=== PATIENT | female | born 1965 | race Caucasian/White ===

== ENCOUNTER → 2019-02-09 08:42 | Outpatient (CLI) | payer MEDICARE, SELFPAY ==
--- NOTE | 2019-02-09 08:48 | BI_ITS ---
MAMMOGRAPHY - BILATERAL SCREENING REASON FOR EXAM: Female, 53 years old. Routine annual screening examination. PERTINENT HISTORY: Sisters with breast cancer. Aunts with breast cancer. TECHNIQUE: Digital bilateral breast angelia (3D mammographic acquisition) in the CC and MLO projections. 2-D mediolateral oblique (MLO) and craniocaudad (CC) views of both breasts were obtained. CAD: Full Field Digital Mammography with Computer Added Detection was performed. COMPARISON: Comparison is made with prior study dated June 10, 2016 and February 05, 2015. FINDINGS: Breast Composition: The breasts are heterogeneously dense, which may obscure small masses. There are no dominant masses or suspicious calcifications. No other significant abnormalities are identified. There has been no significant change since the prior study. BI/SCREEN MAMM (CAD) W/ANGELIA BILAT IMPRESSION: Stable bilateral screening mammogram. Yearly follow-up mammogram recommended. (A) ASSESSMENT CATEGORY: BIRADS Category 1: Negative. A letter regarding these results will be sent to the patient by the facility within 30 days. Approximately 10% of breast cancers are not detected by mammography. A normal mammogram should not delay biopsy of a clinically suspicious abnormality. [id number] Electronically Signed: Lester Cervantes, at 11:17 EDT , Service support ,
--- NOTE | 2019-02-09 09:19 | BD_ITS ---
STUDY: DUAL ENERGY X-RAY ABSORPTIOMETRY / DXA REASON FOR EXAM: Female, 53 years old. Early menopause. No loss of height. TECHNIQUE: Bone Mineral Density (BMD) measurements of lumbar spine and right hip were obtained. COMPARISON: Comparison is made with prior study dated February 05, 2015. FINDINGS: Lumbar Spine (L1-L4): g/cm2 (1.079) / T-score (-0.8) / Z-score (-0.2) Findings are suggestive of normal bone density with a low fracture risk. Right Femur Total: g/cm2 (0.791) / T-score (-1.7) / Z-score (-1.1) Right Femoral Neck: g/cm2 (0.762) / T-score (-2.0) / Z-score (-1.1) The T-Scores on the most recent prior examination were: Lumbar Spine (L1-L4): There has been improvement of bone density since the previous examination. Left Femur Total: . Right Femur Total: which represents a worsening of 2.2%. BD/Dexa Bone Density Study IMPRESSION: The patient is considered osteopenic as outlined below according to World Diaz Organization (WHO) criteria with a moderate fracture risk. There has been worsening of bone density since the previous examination. Reference Information: The T-score is the number of standard deviations above or below the standard which is normal for young adults at their peak bone mineral density. The World Health Organization (WHO) interprets the T-scores as follows: Above -1 Normal bone density Between -1 and -2.5 Osteopenia Equal to / or below -2.5 Osteoporosis As a practical clinical guideline, osteopenia may be graded as follows: Mild -1 through -1.5 Moderate -1.6 through -2.0 Severe -2.1 through -2.4 The Z-score is the number of standard deviations above or below age-matched controls. A Z-score of less than -1.5 would be considered abnormal. References: 1. NIH Osteoporosis and Related Bone Diseases http://www.osteo.org 2. International Society for Clinical Densitometry http://www.iscd.org 3. National Osteoporosis Foundation http://www.nof.org Electronically Signed: Lester Cervantes, at 11:10 EDT , Service support ,
== END ==
PROVIDERS: Family Provider Nurse Practitioner Family; PCP Nurse Practitioner Family; Referring Provider Nurse Practitioner Family; Visit Provider Nurse Practitioner Family
DX: Z12.31 Encounter for screening mammogram for malignant neoplasm of breast (principal); Z80.3 Family history of malignant neoplasm of breast; Z78.0 Asymptomatic menopausal state; M85.80 Other specified disorders of bone density and structure, unspecified site
CPT/HCPCS: 77063; 77067; 77080

== ENCOUNTER → 2021-03-27 08:45 | Outpatient (CLI) | payer MEDICARE, SELFPAY ==
--- NOTE | 2021-03-27 08:51 | VDLE_ITS ---
Reason For Study: pain RIGHT LEFT CFV is partially compressible with decreased CFV is compressible, spontaneous, phasic, flow. DVT appears to be loosley attached. competent, and demonstrates normal FV, POP V, T/P Trunk, PTV, Peroneal V, and augmentation. Gastroc V are dilated and noncompressible. GSV is normal. Procedure This is a venous duplex using B-mode, color flow and spectral Doppler. Exam performed in department. The exam was diagnostic. A preliminary report was called and/or faxed to Dr. Santo office. VL/Venous Duplex US, Unilateral Interpretation Summary Acute deep vein thrombosis is noted in the right common femoral vein. Acute lucie p vein thrombosis is noted in the right femoral vein. Acute deep vein thrombosis is noted in the rig ht popliteal vein. Acute deep vein thrombosis is noted in the right tibio-peroneal trunk. Acute de ep vein thrombosis is noted in the right posterior tibial vein. Acute deep vein thrombosis is noted i n the right peroneal vein. Acute deep vein thrombosis is noted in the right gastrocnemius vein. The right great saphenous vein appears patent and compressible segmentally. Ordering Physician: Jose L Coffman Performed By: Rick Magana RVT
== END ==
PROVIDERS: Referring Provider Specialist; Visit Provider Specialist
DX: M79.661 Pain in right lower leg (principal); I82.411 Acute embolism and thrombosis of right femoral vein; I82.431 Acute embolism and thrombosis of right popliteal vein; I82.441 Acute embolism and thrombosis of right tibial vein; I82.451 Acute embolism and thrombosis of right peroneal vein; I82.461 Acute embolism and thrombosis of right calf muscular vein
CPT/HCPCS: 93971

== ENCOUNTER 2021-03-27 09:38 | Emergency (ER) | payer MEDICARE, SELFPAY ==
[2021-03-27 09:39] VITALS: BP 98/57; PULSE 81; RESP 16; TEMP 36.1; O2SAT 98; BMI 29.2
--- NOTE | 2021-03-27 09:58 | EDS_ITS ---
HPI History of Present Illness Chief Complaint: Lower Extremity Injury Informant: patient Narrative Narrative: Patient sent over from radiology department for diagnosed blood clot right lower extremity. Reports had a foot fracture nonsurgically managed 9 weeks [address] Coffman. Intermittent leg swelling since then however worsening over last 2 weeks. Ultrasound ordered last night by Dr. Coffman performed this morning sent to the ED with results. Reviewing of report noted femoral vein popliteal vein TP trunk PTV, peroneal vein and gastroc veins all dilated noncompressible. Also partially compressible common femoral for vein. Reports concerning loosely attached DVT. 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 She states the filter was placed prior to a gastric sleeve procedure. She states she lost her insurance 4 years ago her blood thinners of Coumadin was stopped at that time. After couple years she has been off of it had insurance back they decided to leave her off the blood thinners. Denies any GI bleed history. Denies chest pains or shortness of breath. She states previous PCP she was seen was Dr. Jared Julio at [place]. She is currently back and forth from [facility]. She has been staying here since her foot fracture. Prior similar symptoms: Yes PFSH [facility] Medical History (Updated 03/27/21 @ 11:[address] Donovan Francois DO) Acute carpal tunnel syndrome Arthritis Closed left arm fracture Depression Former smoker GERD (gastroesophageal reflux disease) Irregular heart beat Leaky heart valve Osteoporosis Pulmonary embolism Sleep apnea Home Medications bupropion HCl 150 mg PO DAILY 06/23/16 [History Last Taken Unknown] ondansetron HCl 8 mg PO Q8H PRN PRN #20 tablet 07/01/16 [Rx Last Taken Unknown] oxycodone-acetaminophen 1 - 2 tab PO Q6H PRN PRN #60 tab 07/01/16 [Rx Last Taken Unknown] apixaban [Eliquis DVT-PE Treat 30D Start] 10 mg PO BID #74 tab 03/27/21 [Rx Last Taken Unknown] Allergy/AdvReac Type Severity Reaction Status Date / Time venlafaxine HCl Allergy Hives Verified 01/17/16 17:22 [From Effexor] Surgical History (Updated 03/27/21 @ 11:20 by Kareen Cazares) History of embolic filter insertion Social History Smoking Status: Never smoker ROS ROS ED Constitutional Constitutional ED: Denies chills, fever(s) or sweats Eyes Eyes: Denies change in vision ENT ENT ED: Denies dysphagia or sore throat Cardiovascular Cardiovascular: Denies chest pain, leg edema, palpitations or racing heartbeat Respiratory/Chest Respiratory/Chest: Denies cough, dyspnea or dyspnea on exertion Gastrointestinal Gastrointestinal: Denies abdominal pain, diarrhea, nausea or vomiting Genitourinary Genitourinary ED: Denies dysuria, hematuria or urinary frequency Musculoskeletal Musculoskeletal: Reports myalgias; Denies back pain, extremity pain or neck pain Integumentary Denies rash or wounds Neurologic Neurologic: Denies headache(s), paresthesias or weakness EXAM Physical Exam Const Vital Signs: 03/27/21 09:39 Temperature 97.0 F L Temperature Source Temporal Pulse Rate 81 Respiratory Rate 16 Blood Pressure 98/57 L Blood Pressure Mean 70 Pulse Ox 98 Oxygen Delivery Method Room Air Positive well nourished and well developed General Appearance ED: well developed and NAD HEENT Reports moist mucous membranes normocephalic and atraumatic Eyes PERRL, EOMs intact bilaterally and conjunctivae normal General Eye ED: Yes normal appearance of both eyes Neck no lymphadenopathy and supple General: Negative for tenderness Chest Wall Chest: Negative for tenderness Resp normal respiratory effort and normal air movement Effort and Inspection: symmetric chest movement; Negative for respiratory distress Cardio regular rate, regular rhythm and no murmurs Peripheral Pulses: pulses 2+ throughout GI normal to inspection, nondistended, normoactive bowel sounds and non-tender Palpation: Negative for guarding or rebound tenderness present Back/Spine no CVA tenderness and no thoracic nor lumbar tenderness Extremity normal to inspection Extremity Narrative: Asymmetric swelling right lower extremity compared to the left lower extremity. Mild calf tenderness. No medial thigh tenderness. Pulses were intact distally. General Extremety ED: Yes edema; Negative for tenderness General Extremity: edema Neuro oriented x3 and no sensory deficits noted Sensorium / Orientation: awake and alert Skin no rashes or lesions noted and no wounds MDM MDM MDM Narrative Medical decision making narrative: Patient confirmed right lower extremity DVT. She has been off anticoagulation for 4 years. Check labs normal creatinine and creatinine clearance. I did speak with Jared Anna, agrees with Rachna and he'll follow-up as an outpatient. 10 mg started in the ED. Discussed with patient 10 mg twice a day for 7 days then go down to 5 mg. She understands the plan of care. She has no chest symptoms. Her vitals remained stable. Lab Data Attestation: I reviewed the patient's lab results. Labs: Laboratory Results - last 24 hr 03/27/21 03/27/21 10:40 10:40 WBC 4.9 RBC 4.65 Hgb 13.8 Hct 43.3 MCV 93.1 MCH 29.7 MCHC 31.9 L RDW Std Deviation 42.4 RDW Coeff of Natalie 12.4 Plt Count 224 MPV 10.7 Immature Gran % (Auto) 0.200 Neut % (Auto) 53.5 Lymph % (Auto) 34.4 Nelson % (Auto) 8.6 Eos % (Auto) 2.7 Baso % (Auto) 0.6 Absolute Neuts (auto) 2.6 Absolute Lymphs (auto) 1.68 Nucleated RBC % 0 Sodium 140 Potassium 4.3 Chloride 107 Carbon Dioxide 33.0 H Anion Gap 0 L BUN 9 Creatinine 0.68 Estim Creat Clear Calc 73.93 Est GFR (MDRD) Af Amer 115 Est GFR (MDRD) Non-Af 95 BUN/Creatinine Ratio 13.2 Glucose 91 Calcium 8.9 Discharge Plan Triage Chief Complaint: Lower Extremity Injury ED Provider: Donovan Francois Dx/Rx/DC Orders Clinical Impression: Right leg DVT Instructions: DVT Dc Prescriptions: [place]e DVT-PE Treat 30D Start 5 mg (74 tabs) tablets,dose pack 10 mg PO BID Qty: 74 RF: 0 No Action bupropion HCl 150 MG tablet extended release 24 hr 150 mg PO DAILY RF: 0 ondansetron HCl 8 MG tablet 8 mg PO Q8H PRN PRN (Reason: Nausea) Qty: 20 RF: 0 oxycodone-acetaminophen 1 TABLET tablet 1 - 2 tab PO Q6H PRN PRN (Reason: Pain) Qty: 60 RF: 0 Primary Care Provider: NOT,DEFINED Referrals: NOT,DEFINED [Primary Care Provider] - Jared Pereyra RN HOUSE SUPERVISOR, RN HOUSE SUPERVISOR-C [NON-STAFF] - 5-7 Days Disposition Disposition: Home, Self Care
[2021-03-27 10:47] LABS: Absolute Lymphocyte Count 1.68 X10^3/uL (0.83-4.51); Absolute Neutrophil Count 2.6 X10^3/uL (2.0-7.7); Basophil# 0.03 X10^3/uL; Basophil% 0.6 % (0-1); Eosinophil# 0.13 X10^3/uL; Eosinophils% 2.7 % (0-5); Hematocrit 43.3 % (37-47); Hemoglobin 13.8 g/dL (12.0-15.0); Lymphocyte # 1.68 X10^3/ul (0.83-4.51); Lymphocyte % 34.4 % (19-41); Mean Corp Hgb Conc 31.9 g/dL (32-36); Mean Corpuscular Hgb 29.7 pg (27.0-32.0); Mean Corpuscular Volume 93.1 fL (81-99); Mean Platelet Vol. 10.7 fl (6.2-12.0); Monocyte# 0.42 X10^3/uL; Monocyte% 8.6 % (0-10); NRBC Flagged by Analyzer 0 % (0-5); Neutrophil # 2.61 X10^3/uL (2.7-7.7); Neutrophil % 53.5 % (47-70); Platelet Count 224 K/mm3 (150-450); RBC Distribution Width CV 12.4 % (11.6-14.6); RBC Distribution Width SD 42.4 fl (35.1-43.9); Red Blood Count 4.65 M/mm3 (4.2-5.4); White Blood Count 4.9 K/mm3 (4.4-11.0)
[2021-03-27 11:00] LABS: Anion Gap 0 (5-15); BUN 9 mg/dL (7-18); BUN/Creat Ratio 13.2 RATIO (10-20); Calcium,Total 8.9 mg/dL (8.5-10.1); Chloride 107 mmol/L (98-107); Creatinine, Serum 0.68 mg/dL (0.55-1.02); EST Glomerular Filtration Rate 95 mL/min (>60); Est Glom Filt Rate - Afr Amer 115 mL/min (>60); Estimated Creatinine Clearance 73.93 ml/min; Glucose 91 mg/dL (74-106); Potassium 4.3 mmol/L (3.5-5.1); Sodium Level 140 mmol/L (136-145)
[2021-03-27] MEDS: APIXABAN 5 MG TABLET 10 MG PO (11:40)
[2021-03-27 11:53] VITALS: BP 104/71; PULSE 88
== END 2021-03-27 11:56 | disposition home or self-care (01) ==
LOC: ED 11:56
PROVIDERS: Emergency Provider Emergency Medicine
DX: I82.411 Acute embolism and thrombosis of right femoral vein (principal); I82.431 Acute embolism and thrombosis of right popliteal vein; I82.441 Acute embolism and thrombosis of right tibial vein; I82.451 Acute embolism and thrombosis of right peroneal vein; I82.461 Acute embolism and thrombosis of right calf muscular vein; M19.90 Unspecified osteoarthritis, unspecified site; G47.30 Sleep apnea, unspecified; K21.9 Gastro-esophageal reflux disease without esophagitis; F32.9 Major depressive disorder, single episode, unspecified; Z79.01 Long term (current) use of anticoagulants; Z79.899 Other long term (current) drug therapy; Z86.718 Personal history of other venous thrombosis and embolism; Z86.711 Personal history of pulmonary embolism; Z87.891 Personal history of nicotine dependence
CPT/HCPCS: 36415; 80048; 85025; 93971; 99283

== ENCOUNTER 2021-09-09 12:27 | Outpatient (CLI) | payer MEDICARE, SELFPAY ==
--- NOTE | 2021-09-09 12:32 | RAD_ITS ---
EXAM: XR THORACIC SPINE, 3 VIEWS CLINICAL INDICATION: OSTEO KYPHOPLASTY TECHNIQUE: Frontal, lateral and swimmer''s views of the thoracic spine. This report was created using [employer] report generation technology. COMPARISON: None. FINDINGS: VERTEBRAE: There is endplate spondylosis of the vertebral body. Loss of intervertebral disc height. Age indeterminate compression deformity of L2, L1, T11, T10, T8, T6, T4. Kyphoplasty changes at L3. Preservation of the normal thoracic kyphosis. No significant facet arthropathy. DISC SPACES: Unremarkable. Disc spaces are maintained. VASCULATURE: An IVC filter is in place. RAD/Thoracic Spine 3 Views IMPRESSION: There are compression deformities of the spine. These are age-indeterminate. MRI could further evaluate if of concern. Electronically Signed: Earl Blackman MD at 15:24 EST Reading Location ID and State: [facility] / [place] , Service support ,
== END 2021-09-09 23:59 | disposition home or self-care (01) ==
LOC: RAD 12:29
PROVIDERS: PCP Nurse Practitioner Family; Referring Provider Anesthesiology Pain Medicine; Visit Provider Anesthesiology Pain Medicine
DX: M80.08XA Age-related osteoporosis with current pathological fracture, vertebra(e), initial encounter for fracture (principal)
CPT/HCPCS: 72072

== ENCOUNTER 2021-09-16 09:01 | Outpatient (CLI) | payer MEDICARE, SELFPAY ==
[2021-09-16 09:59] LABS: Hematocrit 43.3 % (37-47); Mean Corp Hgb Conc 32.3 g/dL (32-36); Mean Corpuscular Hgb 30.2 pg (27.0-32.0); Mean Corpuscular Volume 93.3 fL (81-99); Mean Platelet Vol. 10.8 fl (6.2-12.0); Platelet Count 210 K/mm3 (150-450); RBC Distribution Width CV 13.7 % (11.6-14.6); RBC Distribution Width SD 47.3 fl (35.1-43.9); Red Blood Count 4.64 M/mm3 (4.2-5.4); White Blood Count 5.8 K/mm3 (4.4-11.0)
[2021-09-16 10:30] LABS: PTHIN 75.8 pg/mL (18.4-80.1)
[2021-09-16 10:33] LABS: Vitamin D,25 Hydroxy 107.6 ng/mL
[2021-09-16 10:41] LABS: ALB/GLOB Ratio 1.1 RATIO (0.9-2.4); AST(SGOT) 13 U/L (15-37); Alanine Aminotransfer ALT/SGPT 17 U/L (13-56); Albumin, Serum 3.5 g/dL (3.2-5.0); Alkaline Phosphatase 40 U/L (45-117); Anion Gap 5 (5-15); BUN 14 mg/dL (7-18); BUN/Creat Ratio 19.7 RATIO (10-20); Calcium,Total 8.9 mg/dL (8.5-10.1); Chloride 108 mmol/L (98-107); Cholesterol 136 mg/dL (200); Creatinine, Serum 0.71 mg/dL (0.55-1.02); EST Glomerular Filtration Rate 91 mL/min (>60); Est Glom Filt Rate - Afr Amer 110 mL/min (>60); Free T3 2.7 pg/mL (2.18-3.98); Globulin 3.1 g/dL (2.2-4.2); Glucose 82 mg/dL (74-106); High Density Lipoprotein 60 mg/dL; Potassium 4.2 mmol/L (3.5-5.1); Protein, Total 6.6 g/dL (6.4-8.2); Sodium Level 143 mmol/L (136-145); T4 Free Direct 1.02 ng/dL (0.76-1.46); Thyroid Stim Hormone (TSH) 1.81 uIU/mL (0.358-3.74); Triglycerides 87 mg/dL; Very Low Density Lipoprotein 17 mg/dL (5-40)
== END 2021-09-16 23:59 | disposition home or self-care (01) ==
LOC: LAB 09:05
PROVIDERS: PCP Nurse Practitioner Family; Visit Provider Nurse Practitioner Family
DX: I82.419 Acute embolism and thrombosis of unspecified femoral vein (principal); E78.5 Hyperlipidemia, unspecified; E55.9 Vitamin D deficiency, unspecified; E03.9 Hypothyroidism, unspecified
CPT/HCPCS: 36415; 80053; 80061; 82306; 83970; 84439; 84443; 84481; 85027

== ENCOUNTER 2021-09-22 09:32 | Outpatient (CLI) | payer MEDICARE, SELFPAY ==
--- NOTE | 2021-09-22 09:41 | VDLE_ITS ---
Reason For Study: RLE DVT 03/27/2021 RIGHT LEFT GSV is normal. CFV is compressible, spontaneous, phasic, CFV is compressible, spontaneous, phasic, competent, and demonstrates normal competent and demonstrates normal augmentation. augmentation. POP V is compressible, spontaneous, phasic, competent and demonstrates normal augmentation. T/P Trunk is compressible. PTV is compressible. RT PerV is compressible. PFV is compressible. Proximal and mid FV is compressible, spontaneous, phasic, competent and demonstrates normal augmentation. Distal CFV is partially compressible; however flow is noted throughout FV. VL/Venous Duplex US, Unilateral Interpretation Summary Chronic venous changes are noted in the right distal femoral vein, which is par tially compressible, but demonstrates venous flow. The remainder of the right lower extremity deep v enous system is patent and compressible. Valvular competence appears intact within the proximal deep venous system on the right . The right great saphenous vein appears patent and compressible s egmentally. Ordering Physician: Jared Pereyra Referring Physician: Jared Pereyra Performed By: Kathrine Angel, FIDEL, RVT
--- NOTE | 2021-09-22 10:33 | BI_ITS ---
MAMMOGRAPHY - BILATERAL SCREENING REASON FOR EXAM: Female, 55 years old. Routine annual screening examination. PERTINENT HISTORY: Sisters with breast cancer. Aunt with breast cancer. TECHNIQUE: Digital bilateral breast angelia (3D mammographic acquisition) in the CC and MLO projections. 2-D mediolateral oblique (MLO) and craniocaudad (CC) views of both breasts were obtained. CAD: Full Field Digital Mammography with Computer Added Detection was performed. COMPARISON: Comparison is made with prior study dated 02/09/2019. FINDINGS: Breast Composition: The breasts are heterogeneously dense, which may obscure small masses. There are no dominant masses or suspicious calcifications. No other significant abnormalities are identified. There has been no significant change since the prior study. BI/SCRN MAMM (CAD)W/ANGELIA BILAT IMPRESSION: Stable bilateral screening mammogram. Yearly follow-up mammogram recommended. (A) ASSESSMENT CATEGORY: BIRADS Category 1: Negative. A letter regarding these results will be sent to the patient by the facility within 30 days. Approximately 10% of breast cancers are not detected by mammography. A normal mammogram should not delay biopsy of a clinically suspicious abnormality. [id number] Electronically Signed: Lester Cervantes MD at 12:32 EST ,
== END 2021-09-22 23:59 | disposition home or self-care (01) ==
PROVIDERS: PCP Nurse Practitioner Family; Referring Provider Nurse Practitioner Family; Visit Provider Nurse Practitioner Family
DX: Z12.31 Encounter for screening mammogram for malignant neoplasm of breast (principal); I82.413 Acute embolism and thrombosis of femoral vein, bilateral; Z80.3 Family history of malignant neoplasm of breast
CPT/HCPCS: 77063; 77067; 93971

== ENCOUNTER 2021-10-15 12:22 | Outpatient (CLI) | payer MEDICARE, SELFPAY ==
--- NOTE | 2021-10-15 12:33 | RAD_ITS ---
INDICATION: BACK PAIN EXAMINATION/TECHNIQUE: X-RAY - XR Spine Thoracic 3 Views COMPARISON: Thoracic spine radiograph from 09/09/2021 FINDINGS: Stable chronic appearing mild compression deformities in the thoracic spine. No change in alignment. Redemonstration of multilevel degenerative changes. No new or acute findings since prior study of 09/09/2021. RAD/Thoracic Spine 3 Views IMPRESSION: Stable exam with no new or acute findings since prior study 09/09/2021. Electronically Signed: Tyrone Salcedo, at 14:21 EDT ,
--- NOTE | 2021-10-15 12:34 | RAD_ITS ---
INDICATION: BACK PAIN EXAMINATION/TECHNIQUE: X-RAY - XR Spine Lumbar 2 or 3 Views COMPARISON: Lumbar spine radiograph from 09/04/2012. Thoracic spine radiograph from 09/09/2021. FINDINGS/ RAD/Lumbar Spine 2 or 3 Views IMPRESSION: Kyphoplasty changes in the L3 and L4 vertebral bodies. Chronic minimal height loss and degenerative endplate changes of the L1-L5 vertebral bodies. Multilevel degenerative disc disease. Multilevel facet arthropathy most prominent in the L4-S1 levels. Sacroiliac joints are unremarkable. No acute fracture or dislocation. 9 mm of grade 1 anterolisthesis of L4 on L5. Alignment is preserved. Stable positioning of the IVC filter. Electronically Signed: Tyrone Salcedo, at 14:16 EDT ,
== END 2021-10-15 23:59 | disposition home or self-care (01) ==
LOC: RAD 12:31
PROVIDERS: PCP Nurse Practitioner Family; Referring Provider Anesthesiology Pain Medicine; Visit Provider Anesthesiology Pain Medicine
DX: M54.9 Dorsalgia, unspecified (principal)
CPT/HCPCS: 72072; 72100

== ENCOUNTER → 2021-11-24 | Outpatient (CLI) | payer MEDICARE, SELFPAY ==
[2021-11-24 10:15] LABS: Amphetamine Urine VISTA NEGATIVE (<1000 ng/mL); Barbiturate Urine VISTA NEGATIVE (< 200 ng/mL); Benzodiazepine Urine VISTA NEGATIVE (< 200 ng/mL); Cocaine Urine VISTA NEGATIVE (< 300 ng/mL); Ecstacy Urine VISTA POSITIVE (< 500 ng/mL); Methadone Urine VISTA NEGATIVE (< 300 ng/mL); PCP Urine VISTA NEGATIVE (< 25 ng/mL); THC Urine VISTA NEGATIVE (< 50 ng/mL); Vista UDS pH Range 5
== END | disposition home or self-care (01) ==
LOC: LAB 09:28
PROVIDERS: PCP Nurse Practitioner Family; Referring Provider Anesthesiology Pain Medicine; Visit Provider Anesthesiology Pain Medicine
DX: F11.20 Opioid dependence, uncomplicated (principal)
CPT/HCPCS: 80307

== ENCOUNTER → 2021-11-27 | Outpatient (CLI) | payer MEDICARE, SELFPAY ==
--- NOTE | 2021-11-27 14:50 | CT_ITS ---
STUDY: CT THORACIC SPINE WITHOUT CONTRAST REASON FOR EXAM: Female, 56 years old. RADICULOPATHY RADIATION DOSAGE (If Supplied By Facility): CTDIvol = ( 18.88 ) mGy, DLP = ( 628.56 ) mGycm TECHNIQUE: The patient was scanned in a multi detector CT scanner. High resolution imaging was performed. Images were obtained from to . Sagittal and coronal images were reconstructed. Individualized dose optimization techniques were used for this CT. COMPARISON: None. FINDINGS: Normal visualized cervical spine. Normal kyphosis of the thoracic spine. There is no substantial scoliosis there is mild irregularity of endplates and decrease in height of multiple vertebral bodies with vacuum phenomena seen.. Normal disc spaces heights. The soft tissue structures are unremarkable. CT/Spine Thoracic without Contras IMPRESSION: Mild chronic appearing compression deformity of mid thoracic vertebral bodies. Electronically Signed: Marco A Marx MD at 4:19 EDT ,
== END | disposition home or self-care (01) ==
PROVIDERS: PCP Nurse Practitioner Family; Referring Provider Anesthesiology Pain Medicine; Visit Provider Anesthesiology Pain Medicine
DX: M54.14 Radiculopathy, thoracic region (principal)
CPT/HCPCS: 72128

== ENCOUNTER → 2021-12-04 | Outpatient (CLI) | payer MEDICARE, SELFPAY ==
[2021-12-04 12:37] LABS: Vitamin D,25 Hydroxy 114.7 ng/mL
[2021-12-04 12:43] LABS: Calcium,Total 9.3 mg/dL (8.5-10.1)
== END | disposition home or self-care (01) ==
LOC: BIMLAB 10:19
PROVIDERS: PCP Nurse Practitioner Family; Referring Provider Internal Medicine Endocrinology, Diabetes & Metabolism; Visit Provider Internal Medicine Endocrinology, Diabetes & Metabolism
DX: M81.0 Age-related osteoporosis without current pathological fracture (principal); E55.9 Vitamin D deficiency, unspecified
CPT/HCPCS: 36415; 82306; 82310

== ENCOUNTER → 2021-12-19 | Outpatient (CLI) | payer MEDICARE, SELFPAY ==
[2021-12-19 12:34] VITALS: BP 120/76; PULSE 62; RESP 16; TEMP 36.2; O2SAT 97
[2021-12-19] MEDS: Zoledronic Acid 5 MG 100 ML 300 MG IV (12:57)
[2021-12-19] MEDS: 0.9% NaCl Peripheral Flush Adult/Peds IV (12:57)
[2021-12-19 13:19] VITALS: BP 110/63; PULSE 75; RESP 16
== END | disposition home or self-care (01) ==
PROVIDERS: PCP Nurse Practitioner Family; Referring Provider Internal Medicine Endocrinology, Diabetes & Metabolism; Visit Provider Internal Medicine Endocrinology, Diabetes & Metabolism
DX: M81.0 Age-related osteoporosis without current pathological fracture (principal)
CPT/HCPCS: 96365; A4216; J3489

== ENCOUNTER 2022-05-22 09:42 | Emergency (ER) | payer MEDICARE, SELFPAY ==
[2022-05-22 09:43] VITALS: BP 128/89; PULSE 78; RESP 17; TEMP 36; O2SAT 98; BMI 30.9
--- NOTE | 2022-05-22 10:05 | CT_ITS ---
STUDY: CT ABDOMEN AND PELVIS WITH CONTRAST REASON FOR EXAM: Female, 56 years old. RLQ pain X 1 WEEK RADIATION DOSAGE (If Supplied By Facility): CTDIvol = ( 0.76 ) mGy, DLP = ( 464.52 ) mGycm TECHNIQUE: Transaxial images were obtained from the dome of the diaphragm to the symphysis pubis without oral contrast. IV 100mL [id number]-[id number] was administered. Sagittal and coronal images were reconstructed. Individualized dose optimization techniques were used for this CT. COMPARISON: 07/10/2013 and radiograph dated 10/15/2021 FINDINGS: There is minimal right basilar atelectasis and/or scarring.. The visualized portions of the heart are within normal limits. Normal liver. Normal gallbladder and extrahepatic biliary system. Normal spleen. Normal pancreas. Normal bilateral adrenal glands. There are too small to characterize low-attenuation foci within the right kidney which may reflect cysts. There is a left renal cyst. There are postsurgical changes of the stomach. Normal small intestine. There are scattered diverticula arising from the colon. The appendix is visualized and appears normal. Normal abdominal aorta. There is an IVC filter in place. Normal retroperitoneum. Normal urinary bladder. There is absence of the uterus consistent with a prior hysterectomy. Normal abdominal wall. There is evidence of prior kyphoplasty of L1 3 and L4. There are stable multilevel endplate deformities. There is a stable grade 1 anterior spondylolisthesis of L4 on L5. CT/Abdomen/Pelvis W IV Cont ONLY IMPRESSION: No acute intra-abdominal process. Electronically Signed: Lynne York MD at 11:59 EDT ,
--- NOTE | 2022-05-22 10:06 | EDS_ITS ---
HPI HPI - GI History of Present Illness Chief Complaint: Abd Pain Informant: patient Abdominal Pain/Flank Pain Onset: Weeks (1) Context: Gradual Onset Timing: Intermittent Quality: Aching Location: RLQ (Without radiation, no migration) Current Severity: Moderate Maximum Severity: Moderate Worsened by: Nothing Relieved by: Nothing Nausea/Vomiting/Emesis GI Symptom: Positive for Nausea; Negative for Vomiting Diarrhea/Melena/Hematochezia GI Symptom: Positive for - (Last BM yesterday, normal); Negative for Diarrhea, Melena or Hematochezia Associated Symptoms Associated Symptoms: Negative for Dysuria, Frequency, Hematuria or Urgency Narrative Narrative: Intermittent RLQ abdominal pain that has become more constant, saw PCP today and sent to the ER after a negative urinalysis in the office. No urinary symptoms. Anorexia, nausea, no vomiting. Prior abdominal surgeries include , hysterectomy with salpingo- oophorectomy, the other oophorectomy, and a gastric sleeve for weight loss. [facility] Medical History Acute carpal tunnel syndrome Arthritis Closed left arm fracture Depression Former smoker Gastric reflux GERD (gastroesophageal reflux disease) Hyperlipidemia Irregular heart beat Leaky heart valve Narcolepsy Osteoporosis Over weight Pulmonary embolism Sleep apnea Thyromegaly Urinary incontinence Home Medications acetaminophen 650 mg tablet,extended release (Tylenol Arthritis Pain) 650 mg PO Q12H 09/26/21 [History Last Taken Unknown] apixaban 2.5 mg tablet (Eliquis) 2.5 mg PO BID 09/26/21 [History Last Taken Unknown] bupropion HCl 300 mg 24 hr tablet, extended release 300 mg PO DAILY 09/26/21 [History Last Taken Unknown] diclofenac sodium 1 % topical gel 2 g topical 09/26/21 [History Last Taken Unknown] omeprazole 40 mg capsule,delayed release 40 mg PO DAILY 09/26/21 [History Last Taken Unknown] rosuvastatin 40 mg tablet 40 mg PO DAILY 09/26/21 [History Last Taken Unknown] zoledronic acid 5 mg/100 mL in mannitol 5 %-water intravenous piggybck 1 ea .Route ONCE #100 mL 12/04/21 [Rx Last Taken Unknown] buprenorphine 7.5 mcg/hour weekly transdermal patch 1 patch transdermal Q7D 05/22/22 [History Last Taken Unknown] Allergy/AdvReac Type Severity Reaction Status Date / Time armodafinil [From Nuvigil] Allergy anaphylaxis Verified 05/22/22 09:43 atorvastatin Allergy Hives Verified 05/22/22 09:43 venlafaxine HCl Allergy Hives Verified 05/22/22 09:43 [From Effexor] Family History Other Arthritis Cancer Heart disease Hypertension Surgical History H/O hysterectomy with oophorectomy H/O wrist surgery History of embolic filter insertion History of gastric bypass Hx of section Social History Smoking Status: Never smoker ROS ROS ED Constitutional Constitutional ED: Reports anorexia; Denies chills or fever(s) Eyes Eyes: Denies change in vision or diplopia ENT ENT ED: Denies rhinorrhea or sore throat Cardiovascular Cardiovascular: Denies chest pain or palpitations Respiratory/Chest Respiratory/Chest: Denies cough or dyspnea Gastrointestinal Gastrointestinal: Reports as per HPI, abdominal pain and nausea; Denies diarrhea or vomiting Genitourinary Genitourinary ED: Denies dysuria or hematuria Musculoskeletal Musculoskeletal: Reports arthralgias and back pain; Denies neck pain Integumentary Denies abscess or rash Neurologic Neurologic: Denies headache(s), paresthesias or weakness Psychiatric Psychiatric: Denies anxiety or suicidal thoughts EXAM Physical Exam Const Vital Signs: 05/22/22 09:43 05/22/22 11:51 Temperature 96.8 F L Temperature Source Temporal Pulse Rate 78 76 Respiratory Rate 17 16 Blood Pressure 128/89 H 111/73 Blood Pressure Mean 102 85 Pulse Ox 98 96 Oxygen Delivery Method Room Air Room Air Positive well nourished and well developed General Appearance ED: well developed and NAD HEENT Reports moist mucous membranes normocephalic and atraumatic Eyes PERRL and EOMs intact bilaterally Neck full ROM and supple Resp normal respiratory effort and clear to auscultation bilaterally Cardio regular rate, regular rhythm and no murmurs Rate: Negative for tachycardic GI non-distended GI Narrative: Moderate-severe tenderness in the right lower quadrant including McBurney's point. No guarding or rebound tenderness. Negative Rovsing. Positive psoas, positive obturator signs. Nontender throughout the rest of the abdomen. Auscultation: normoactive bowel sounds Palpation: soft Back/Spine no CVA tenderness General Back: other FROM Extremity normal to inspection General Extremety ED: Negative for edema, pulses abnormal or tenderness General Extremity: Negative for edema or pulses abnormal Neuro oriented x3, CN's II-XII intact bilaterally and no sensory deficits noted Sensorium / Orientation: awake and alert Motor Exam: strength 5/5 throughout Skin no rashes or lesions noted and no wounds MDM MDM MDM Narrative Medical decision making narrative: Concern is for an atypical case of appendicitis, or possibly 1 that is already ruptured and abscessed; the patient wears a Butrans patch because of chronic pain in her low back and joints, and it certainly is possible this has suppressed the pain adequately for her to tolerate this. Therefore labs, CT were obtained and while we were working her up, she was offered analgesics but declined until she had more information about the test results and whether she would be driving home or staying in the hospital which I thought was reasonable. Entire work-up is completely normal with a white blood count of 5.5 and no signs of a shift. The CT is normal; no signs of inflammation, no hematomas, no retroperitoneal hemorrhage, the IVC filter is in normal position and unremarkable. She does not have ovaries that could cause torsion or cyst rupture. No sign of a ureteral stone. As I discussed with the patient, perhaps this is muscular. I think she is stable to be discharged home and follow-up. Lab Data Attestation: I reviewed the patient's lab results. Labs: Laboratory Results - last 24 hr 05/22/22 05/22/22 10:00 10:00 WBC 5.5 RBC 4.85 Hgb 14.8 Hct 46.2 MCV 95.3 MCH 30.5 MCHC 32.0 RDW Std Deviation 43.0 RDW Coeff of Natalie 12.2 Plt Count 249 MPV 10.3 Immature Gran % (Auto) 0.400 Neut % (Auto) 54.4 Lymph % (Auto) 34.7 Terrell % (Auto) 9.1 Eos % (Auto) 0.7 Baso % (Auto) 0.7 Absolute Neuts (auto) 3.0 Absolute Lymphs (auto) 1.91 Nucleated RBC % 0 Sodium 141 Potassium 3.8 Chloride 107 Carbon Dioxide 29.0 Anion Gap 5 BUN 12 Creatinine 0.72 Estim Creat Clear Calc 89.25 Est GFR (MDRD) Af Amer 108 Est GFR (MDRD) Non-Af 90 BUN/Creatinine Ratio 16.8 Glucose 97 Calcium 9.0 Radiography Diagnostic Testing: Clinical Impression(s) from Imaging Studies Abdomen/Pelvis CT 05/22/22 10:05 IMPRESSION: No acute intra-abdominal process. Electronically Signed: Lynne York MD at 11:59 EDT , Discharge Plan Triage Chief Complaint: Abd Pain ED Provider: Jay Tuttle Dx/Rx/DC Orders Clinical Impression: Right lower quadrant abdominal pain Instructions: ED Abdominal Pain Unkn Cause Fem Prescriptions: No Action Eliquis 2.5 mg tablet 2.5 mg PO BID diclofenac sodium 1 % gel 2 g topical Label Comments: APPLY TO AFFECTED AREA ONCE DAILY rosuvastatin 40 mg tablet 40 mg PO DAILY Label Comments: TAKE 1 TABLET BY MOUTH ONCE DAILY FOR 90 DAYS bupropion HCl 300 mg tablet extended release 24 hr 300 mg PO DAILY Label Comments: TAKE 1 TABLET BY MOUTH ONCE DAILY FOR 30 DAYS omeprazole 40 mg capsule,delayed release(DR/EC) 40 mg PO DAILY Label Comments: TAKE 1 CAPSULE BY MOUTH ONCE DAILY FOR 30 DAYS acetaminophen [Tylenol Arthritis Pain] 650 mg tablet extended release 650 mg PO Q12H zoledronic [id number]-uvfah 5 mg/100 mL piggyback 1 ea .Route ONCE Qty: 100 0RF Rx Instructions: onceinfuse over 20 minutes buprenorphine 7.5 mcg/hour Patch Weekly 1 patch TRANSDERMAL Q7D Primary Care Provider: Jared Pereyra STAFF CLIMATE SCIENTIST Referrals: Jared Pereyra STAFF CLIMATE SCIENTIST, STAFF CLIMATE SCIENTIST-C [Primary Care Provider] - 3-5 Days if not improving Disposition Disposition: Home, Self Care
[2022-05-22] MEDS: Ondansetron 4 MG/2 ML Vial IV (10:12)
[2022-05-22 10:16] LABS: Absolute Lymphocyte Count 1.91 X10^3/uL (0.83-4.51); Basophil# 0.04 X10^3/uL; Basophil% 0.7 % (0-1); Eosinophil# 0.04 X10^3/uL; Eosinophils% 0.7 % (0-5); Hematocrit 46.2 % (37-47); Hemoglobin 14.8 g/dL (12.0-15.0); Lymphocyte # 1.91 X10^3/ul (0.83-4.51); Lymphocyte % 34.7 % (19-41); Mean Corpuscular Hgb 30.5 pg (27.0-32.0); Mean Corpuscular Volume 95.3 fL (81-99); Mean Platelet Vol. 10.3 fl (6.2-12.0); Monocyte% 9.1 % (0-10); NRBC Flagged by Analyzer 0 % (0-5); Neutrophil # 2.99 X10^3/uL (2.7-7.7); Neutrophil % 54.4 % (47-70); Platelet Count 249 K/mm3 (150-450); RBC Distribution Width CV 12.2 % (11.6-14.6); Red Blood Count 4.85 M/mm3 (4.2-5.4); White Blood Count 5.5 K/mm3 (4.4-11.0)
[2022-05-22 10:25] LABS: Anion Gap 5 (5-15); BUN 12 mg/dL (7-18); BUN/Creat Ratio 16.8 RATIO (10-20); Chloride 107 mmol/L (98-107); Creatinine, Serum 0.72 mg/dL (0.55-1.02); EST Glomerular Filtration Rate 90 mL/min (>60); Est Glom Filt Rate - Afr Amer 108 mL/min (>60); Estimated Creatinine Clearance 89.25 ml/min; Glucose 97 mg/dL (74-106); Potassium 3.8 mmol/L (3.5-5.1); Sodium Level 141 mmol/L (136-145)
[2022-05-22] MEDS: 0.9% Normal Saline 1,000 ML 250 ML IV (10:49)
[2022-05-22 11:51] VITALS: BP 111/73; PULSE 76; RESP 16; O2SAT 96
[2022-05-22 12:21] VITALS: RESP 18
== END 2022-05-22 12:22 | disposition home or self-care (01) ==
PROVIDERS: Emergency Provider Emergency Medicine; PCP Nurse Practitioner Family; Visit Provider Emergency Medicine
DX: R10.31 Right lower quadrant pain (principal); G89.29 Other chronic pain; R11.0 Nausea; E01.0 Iodine-deficiency related diffuse (endemic) goiter; E78.5 Hyperlipidemia, unspecified; G47.30 Sleep apnea, unspecified; M81.0 Age-related osteoporosis without current pathological fracture; G47.419 Narcolepsy without cataplexy; F32.A Depression, unspecified; Z87.891 Personal history of nicotine dependence
CPT/HCPCS: 74177; 80048; 85025; 96361; 96374; 99283; J7030; Q9967; A4216; J2405

== ENCOUNTER → 2022-05-26 | Outpatient (CLI) | payer MEDICARE, SELFPAY ==
[2022-05-26 09:14] LABS: Vitamin D,25 Hydroxy 47.6 ng/mL
[2022-05-26 09:19] LABS: ALB/GLOB Ratio 1.2 RATIO (0.9-2.4); AST(SGOT) 14 U/L (15-37); Alanine Aminotransfer ALT/SGPT 20 U/L (13-56); Albumin, Serum 3.4 g/dL (3.2-5.0); Alkaline Phosphatase 35 U/L (45-117); Anion Gap 2 (5-15); BUN 13 mg/dL (7-18); BUN/Creat Ratio 16.8 RATIO (10-20); Calcium,Total 8.9 mg/dL (8.5-10.1); Chloride 107 mmol/L (98-107); Cholesterol 155 mg/dL (200); Creatinine, Serum 0.77 mg/dL (0.55-1.02); EST Glomerular Filtration Rate 82 mL/min (>60); Est Glom Filt Rate - Afr Amer 99 mL/min (>60); Globulin 2.8 g/dL (2.2-4.2); Glucose 85 mg/dL (74-106); High Density Lipoprotein 75 mg/dL; Potassium 3.7 mmol/L (3.5-5.1); Protein, Total 6.2 g/dL (6.4-8.2); Sodium Level 142 mmol/L (136-145); T4 Free Direct 0.94 ng/dL (0.76-1.46); Thyroid Stim Hormone (TSH) 2.47 uIU/mL (0.358-3.74); Triglycerides 43 mg/dL; Very Low Density Lipoprotein 9 mg/dL (5-40)
== END | disposition home or self-care (01) ==
LOC: LAB 08:17
PROVIDERS: PCP Nurse Practitioner Family; Referring Provider Nurse Practitioner Family; Visit Provider Nurse Practitioner Family
DX: E03.9 Hypothyroidism, unspecified (principal); E55.9 Vitamin D deficiency, unspecified; E78.5 Hyperlipidemia, unspecified
CPT/HCPCS: 36415; 80053; 80061; 82306; 84439; 84443

== ENCOUNTER → 2022-09-22 | Outpatient (CLI) | payer MEDICARE, SELFPAY ==
--- NOTE | 2022-09-22 09:55 | BI_ITS ---
MAMMOGRAPHY - BILATERAL SCREENING REASON FOR EXAM: Female, 56 years old. Routine annual screening examination. PERTINENT HISTORY: Sisters with breast cancer. Aunts with breast cancer. TECHNIQUE: Digital bilateral breast angelia (3D mammographic acquisition) in the CC and MLO projections. 2-D mediolateral oblique (MLO) and craniocaudad (CC) views of both breasts were obtained. CAD: Full Field Digital Mammography with Computer Added Detection was performed. COMPARISON: Comparison is made with prior study dated 09/22/2021 and 02/09/2019. FINDINGS: Breast Composition: The breasts are heterogeneously dense, which may obscure small masses. There are no dominant masses or suspicious calcifications. Stable small benign-appearing bilateral axillary lymph nodes. No other significant abnormalities are identified. There has been no significant change since the prior study. BI/SCRN MAMM (CAD)W/ANGELIA BILAT IMPRESSION: Stable bilateral screening mammogram. Yearly follow-up mammogram recommended. (A) ASSESSMENT CATEGORY: BIRADS Category 2: Benign. A letter regarding these results will be sent to the patient by the facility within 30 days. Approximately 10% of breast cancers are not detected by mammography. A normal mammogram should not delay biopsy of a clinically suspicious abnormality. [id number] Electronically Signed: Lester Cervantes MD at 12:29 EST ,
--- NOTE | 2022-09-22 10:24 | BD_ITS ---
STUDY: DUAL ENERGY X-RAY ABSORPTIOMETRY / DXA REASON FOR EXAM: Female, 56 years old. [id number] TECHNIQUE: Bone Mineral Density (BMD) measurements of lumbar spine and right hip were obtained. COMPARISON: Comparison is made with prior study dated 02/09/2019. FINDINGS: Lumbar Spine (L1-L4): g/cm2 (1.026) / T-score (0.4) / Z-score (1.5) Findings are suggestive of normal bone density with a low fracture risk. Right Femur Total: g/cm2 (0.768) / T-score (-1.4) / Z-score (-0.7) Right Femoral Neck: g/cm2 (0.641) / T-score (-1.9) / Z-score (-0.7) The T-Scores on the most recent prior examination were: Lumbar Spine (L1-L4): There has been improvement of bone density since the previous examination. Right Femur Total: which represents an improvement of 5%. BD/Dexa Bone Density Study IMPRESSION: The patient is considered osteopenic as outlined below according to World Diaz Organization (WHO) criteria with a moderate fracture risk. There has been improvement of bone density since the previous examination. Reference Information: The T-score is the number of standard deviations above or below the standard which is normal for young adults at their peak bone mineral density. The World Health Organization (WHO) interprets the T-scores as follows: Above -1 Normal bone density Between -1 and -2.5 Osteopenia Equal to / or below -2.5 Osteoporosis As a practical clinical guideline, osteopenia may be graded as follows: Mild -1 through -1.5 Moderate -1.6 through -2.0 Severe -2.1 through -2.4 The Z-score is the number of standard deviations above or below age-matched controls. A Z-score of less than -1.5 would be considered abnormal. References: 1. NIH Osteoporosis and Related Bone Diseases www osteo.org 2. International Society for Clinical Densitometry www iscd.org 3. National Osteoporosis Foundation www nof.org Electronically Signed: Lester Cervantes MD at 11:04 EST ,
== END | disposition home or self-care (01) ==
LOC: OPBD 09:53
PROVIDERS: PCP Nurse Practitioner Family; Referring Provider Nurse Practitioner Family; Visit Provider Nurse Practitioner Family
DX: Z12.31 Encounter for screening mammogram for malignant neoplasm of breast (principal); M81.0 Age-related osteoporosis without current pathological fracture
CPT/HCPCS: 77063; 77067; 77080

== ENCOUNTER → 2023-07-15 | Outpatient (CLI) | payer MEDICARE, SELFPAY ==
--- NOTE | 2023-07-15 11:50 | RAD_ITS ---
STUDY: X-RAY - LEFT KNEE REASON FOR EXAM: Female, 57 years old. KNEE PAIN TECHNIQUE: 4 view(s) of the knee. COMPARISON: None. FINDINGS: Probable 9 mm OCD lesion of the medial femoral condyle, otherwise negative visualized distal femur. Normal visualized proximal tibia and fibula. Normal proximal tibiofibular articulation. There is no demonstrated fracture. Normal medial femorotibial compartment. Normal lateral femorotibial compartment. Normal patellofemoral articulation. There is no demonstrated joint effusion. The soft tissue structures are unremarkable. 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 No acute fracture or dislocation. Electronically Signed: Curly Jung MD at 22:47 EST ,
--- NOTE | 2023-07-15 11:51 | RAD_ITS ---
STUDY: X-RAY - RIGHT KNEE REASON FOR EXAM: Female, 57 years old. KNEE PAIN TECHNIQUE: 4 view(s) of the knee. COMPARISON: None. FINDINGS: 9 mm subchondral cyst of the medial femoral condyle suspicious for old osteochondral defect. Otherwise negative Visualized distal femur. Normal visualized proximal tibia and fibula. Normal proximal tibiofibular articulation. There is no demonstrated fracture. Normal medial femorotibial compartment. Normal lateral femorotibial compartment. There is mild degenerative arthrosis of the patellofemoral articulation. The soft tissue structures are unremarkable. RAD/Knee 4 or More Views IMPRESSION: No acute fracture or dislocation. 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 Electronically Signed: Curly Jung MD at 22:45 EST ,
== END | disposition home or self-care (01) ==
LOC: RAD 11:50
PROVIDERS: PCP Nurse Practitioner Family; Referring Provider Anesthesiology Pain Medicine; Visit Provider Anesthesiology Pain Medicine
DX: M25.562 Pain in left knee (principal); M25.561 Pain in right knee
CPT/HCPCS: 73564

== ENCOUNTER → 2023-09-23 | Outpatient (CLI) | payer MEDICARE, SELFPAY ==
--- OUTSIDE RECORDS SUMMARY | 2023-09-23 07:05 | XMS RPT_ITS | CCD ---
Author Name Unknown Address [address] [place] [address] Organization [facility] Care Team Providers Care Crepe Sole Wire Brusher Name Role Phone REFERRING, HAILE MADISYN BORRERO Unavailable Unavailable JARED PEREYRA Unavailable Unavailable JARED PEREYRA Unavailable Unavailable Karrie BOUDREAUX, Laisha Brewster Unavailable Scott Mishra Attending Unavailable PROVIDER, UNKNOWN Referring Unavailable Jared Pereyra Primary Care Unavailable RILEY STOCK DRIVER - LADLE OPERATORJARED Primary Care Phys ician Jared Pereyra Primary Care Provider CATE BOUDREAUX, DR ZAVALA Attending Unavailabl e RILEY STOCK DRIVER - LADLE OPERATOR, JARED Manzano Primary Care U navailable RILEY STOCK DRIVER - LADLE OPERATOR, JARED Manzano Primary Care U navailable RILEY STOCK DRIVER - LADLE OPERATOR, JARED Manzano Attending U navailable RILEY STOCK DRIVER - LADLE OPERATOR, JARED Manzano Primary Care U navailable RILEY STOCK DRIVER - LADLE OPERATOR, JARED Manzano Attending U navailable SEFFENS STOCK DRIVER-LADLE OPERATOR, REN Attending Unavai lable RILEY STOCK DRIVER - LADLE OPERATOR, JARED Manzano Primary Care U navailable Allergies Allergy Classification Reported Allergen(s) Allergy Type Date of Onset Reaction(s) Facility (1 source) armodafinil Drug Allergy 7 [facility] Work Phone: (1 source) atorvastatin Drug Allergy 7 [facility] Work Phone: (9 sources) venlafaxine; Translations: [venlafaxine] Drug Allergy 08-31-201 6 Weal (disorder) [facility] Work Phone: (8 sources) armodafinil; Translations: [armodafinil] Drug Allergy Lip swelling (finding), Weal (disorder) [facility] (8 sources) atorvastatin; Translations: [atorvastatin] Drug Allergy Nausea (finding) [facility] (8 sources) predniSONE; Translations: [prednisone] Drug Allergy Edema (finding) [facility] Medications Current Medications Medication Drug Class(es) Dates Sig (Normalized) Sig (Original) 8 hr acetaminophen 650 mg extended release oral tablet (5 sources) Start: 05-22-2022 Tylenol 8 HR Arthritis Pain 650 mg oral tablet, extended release Dose : 1,950 mg = 3 tab(s), Oral, BID, PRN as needed for pain, pretty musch every day per pt, 0 Refill(s) Start Date: 05/22/22 Status: Ordered Completed/Discontinued Medications Medication Drug Class(es) Dates Sig (Normalized) Sig (Original) 168 hr buprenorphine 0.0075 mg/hr transdermal system (4 sources) Partial Opioid Agonist Start: 04-08-2022 buprenorphine 7.5 mcg/hr transdermal film, extended release Dose = 1 patch(es), Transdermal, qWeek, 0 Refill(s), 70.4 Start Date: 04/08/22 Status: Ordered calcium (1 source) Phosphate Binder, Calcium Start: 04-01-2016 CALCIUM + D TABS daily CALCIUM CITRATE-VITAMIN D TABS [id number] Laisha Yoon MD 1 ml denosumab 60 mg/ml prefilled syringe (5 sources) RANK Ligand Inhibitor Start: 08-17-2023 Prolia 60 mg/mL subcutaneous solution Dose : 60 mg = 1 mL, Subcutaneous, q6mo, # 1 mL, 1 Refill(s), Pharmacy: [facility], Osteoporosis, 154.5, cm, 08/09/23 10:09:00 EST, Height, kg, 08/09/23 10:09:00 EST, Dosing Weight Start Date: 08/17/23 Status: Ordered Problems Active Problems Problem Classification Problem Date Documented Da te Episodic/Chronic Anxiety disorders (8 sources) Generalized anxiety disorder 04-01-2021 Chronic Disorders of lipid metabolism (8 sources) Hyperlipidemia 04-27-2019 Chronic Esophageal disorders (8 sources) Gastroesophageal reflux disease 04-04-2019 Chronic Gastrointestinal hemorrhage (1 source) Rectal hemorrhage 09-07-2022 Episodic Heart valve disorders (8 sources) Pansystolic murmur 04-01-2021 Episodic Hemorrhoids (3 sources) Hemorrhoids 09-07-2022 Episodic Nutritional deficiencies (8 sources) Vitamin D deficiency 03-10-2019 Chronic Osteoporosis (8 sources) Osteoporosis 03-10-2019 Chronic Past or Other Problems Problem Classification Problem Date Documented Date Episodic/Chronic Complication of device; implant or graft (1 source) Disorders of musculoskeletal implants and repairs; Translations: [Presence of functional implant, unspecified] Onset: 08-28-2016 08-28-2016 Episodic Fracture of upper limb (1 source) Closed fracture of distal end of radius; Translations: [Unspecified fracture of the lower end of left radius, sequela] Onset: 04-01-2016 04-01-2016 Episodic Other non-traumatic joint disorders (1 source) Disorder of wrist joint; Translations: [Other specified joint disorders, left wrist] Onset: 08-28-2016 08-28-2016 Episodic Unclassified (1 source) POST HYSTERECTOMY MENOPAUSE Onset: 02-08-2017 Unclassified (1 source) Problem Results Test Name Value Interpretation Reference Range Facil ity Vital Signs Date Time Vital Sign Value Performing Clinician Facility 11-27-2022 10:09-0400 Diastolic Blood Pressure Non-Invasive [address] SALLY ESPOSITO MD [facility] 11-27-2022 10:09-0400 Heart rate 70 /min DR SALLY ESPOSITO MD [facility] 11-27-2022 10:09-0400 Respiratory rate 18 /min DR SALLY ESPOSITO MD [facility] 11-27-2022 10:09-0400 Systolic Blood Pressure Non-Invasive [address] SALLY ESPOSITO MD [facility] 11-27-2022 10:04-0400 Diastolic Blood Pressure Non-Invasive [address] SALLY ESPOSITO MD [facility] 11-27-2022 10:04-0400 Heart rate 67 /min DR SALLY ESPOSITO MD [facility] 11-27-2022 10:04-0400 Respiratory rate 19 /min DR SALLY ESPOSITO MD [facility] 11-27-2022 10:04-0400 Systolic Blood Pressure Non-Invasive [address] SALLY ESPOSITO MD [facility] 11-27-2022 09:59-0400 Diastolic Blood Pressure Non-Invasive [address] SALLY ESPOSITO MD [facility] 11-27-2022 09:59-0400 Heart rate 71 /min DR SALLY ESPOSITO MD [facility] 11-27-2022 09:59-0400 Respiratory rate 16 /min DR SALLY ESPOSITO MD [facility] 11-27-2022 09:59-0400 Systolic Blood Pressure Non-Invasive [address] SALLY ESPOSITO MD [facility] 11-27-2022 09:54-0400 Body temperature 96.8 [degF] DR SALLY ESPOSITO MD [facility] 11-27-2022 09:50-0400 Respiratory Rate - Anes 3 br/min DR SALLY ESPOSITO MD [facility] 11-27-2022 09:45-0400 Respiratory Rate - Anes 19 br/min DR SALLY ESPOSITO MD [facility] 04-28-2023 09:40-0400 Respiratory Rate - Anes 21 br/min DR SALLY ESPOSITO MD [facility] 11-27-2022 07:39-0400 Body height 155.[address] SALLY ESPOSITO MD [facility] 11-27-2022 07:39-0400 Body temperature 98.24 [degF] DR SALLY ESPOSITO MD [facility] 11-27-2022 07:39-0400 Body weight 69.[address] SALLY ESPOSITO MD [facility] 11-27-2022 07:39-0400 Heart rate 71 /min DR SALLY ESPOSITO MD [facility] NEGATED: Highlighted [id number] 10:14-0400 BMI (Body Mass Index) 29.74 kg/m2 Sathya Mago AT [facility] Work Phone: NEGATED: Highlighted [id number] 10:14-0400 BP Diastolic 71 mm[Hg] Sathya Mago AT [facility] Work Phone: NEGATED: Highlighted [id number] 10:14-0400 BP Systolic 109 mm[Hg] Sahtya Mago AT [facility] Work Phone: NEGATED: Highlighted [id number] 10:14-0400 Height 157.48 cm Sathya Mago AT [facility] Work Phone: NEGATED: Highlighted [id number] 10:140400 Height 157 cm Sathya Mago AT [facility] Work Phone: NEGATED: Highlighted [id number] 10:14-0400 Pulse (Heart Rate) 63 /min Sathya Mago AT [facility] Work Phone: NEGATED: Highlighted [id number] 10: Weight 73.48 kg Sathya Mago AT [facility] Work Phone: NEGATED: Highlighted [id number] 10: Weight 74 kg Sathya Mago AT [facility] Work Phone: Encounters Encounter Date Encounter Type Care Provider Facility Start: 09-01-2023 End: 09-06-2023 ambulatory REN DAVISHADLEY STOCK DRIVER-LADLE OPERATOR Facility:B Start: 09-01-2023 End: 09-05-2023 Outreach Lab REN DAVISHADLEY STOCK DRIVER-LADLE OPERATOR [facility] Start: 08-12-2023 End: 08-13-2023 ambulatory JARED PEREYRA STOCK DRIVER - LADLE OPERATOR Facility:B Start: 08-12-2023 End: 08-12-2023 Patient encounter procedure JARED PEREYRA STOCK DRIVER - LADLE OPERATOR [facility] Start: 04-02-2023 ambulatory Maggi Lehman RN [facility] Start: 04-02-2023 Patient encounter procedure Maggi Lehman RN [facility] Start: 02-22-2023 End: 02-23-2023 ambulatory JARED PEREYRA STOCK DRIVER - LADLE OPERATOR Facility:B Start: 11-27-2022 End: 11-27-[address] SALLY ESPOSITO MD Facility:[facility] Start: 11-27-2022 End: 11-27-[address] SALLY ESPOSITO MD [facility] Start: 05-29-2022 End: 05-29-2022 Patient encounter procedure JARED PEREYRA STOCK DRIVER - LADLE OPERATOR [facility] Start: 07-15-2021 End: 07-15-2021 Patient encounter procedure JARED PEREYRA STOCK DRIVER - LADLE OPERATOR [facility] Start: 06-30-2021 End: 06-30-2021 Patient encounter procedure JARED Manzano RILEY STOCK DRIVER - LADLE OPERATOR [facility] Start: 06-17-2021 End: 06-17-2021 Patient encounter procedure JARED Manzano RILEY STOCK DRIVER - LADLE OPERATOR [facility] Start: 06-11-2021 End: 06-11-[address] KEIKO MACKAY MD [facility] Start: 08-10-2018 Patient encounter procedure [facility] Start: 12-22-2017 End: 12-22-2017 Patient encounter procedure Laisha Yoon MD Work Phone: [facility] Work Phone: Start: 02-08-2017 End: 02-09-2017 Ambulatory PHY WO ID REFERRING Facility:[facility] [place] Procedures Date Procedure Procedure Detail Performing Clinician Start: 04-19-2019 Measurement of respi ratory function DR KEIKO MACKAY MD Plan of Treatment Date Care Activity Detail Author Start: 12-22-2017 End: 12-22-2017 Appointment Appointment [facility] Work Phone: Immunizations Immunization Date Immunization Notes Care Provider Fa cili 05-29-2022 influenza, injectabl e, quadrivalent, contains preservative; Translations: [Fluarix PF Quadrivalent ] JARED PEREYRA STOCK DRIVER - LADLE OPERATOR [facility] 12-10-2020 SARS-CoV-2 mRNA (tozinameran) vaccine DR KEIKO MACKAY MD [facility] 11-08-2020 SARS-CoV-2 mRNA (tozinameran) vaccine DR KEIKO MACKAY MD [facility] 04-27-2019 influenza, injectabl e, quadrivalent, preservative free; Translations: [Fluarix PF Quadrivalent ] DR KEIKO MACKAY MD [facility] 05-27-2018 influenza virus vaccine, unspecified formulation DR KEIKO MACKAY MD [facility] 04-09-2017 influenza virus vaccine, unspecified formulation DR KEIKO MACKAY MD [facility] 06-04-2016 influenza virus vaccine, unspecified formulation DR KEIKO MACKAY MD [facility] 06-04-2016 pneumococcal conjuga te vaccine, [address] KEIKO MACKAY MD [facility] 05-02-2015 influenza virus vaccine, unspecified formulation DR KEIKO MACKAY MD [facility] 06-02-2014 influenza virus vaccine, unspecified formulation DR KEIKO MACKAY MD [facility] 05-01-2013 influenza virus vaccine, unspecified formulation DR KEIKO MACKAY MD [facility] 05-10-2012 influenza virus vaccine, unspecified formulation DR KEIKO MACKAY MD [facility] No information available. Sathya Mercedes AT [facility] Work Phone: Payers Date Payer Category Payer Unknown [id number] 2014 Unknown [id number] 1965 Unknown [id number] [id number] 1965 Unknown [id number] [id number] 1965 Unknown [id number] [id number] 1965 Unknown [id number] [id number] 1965 Unknown [id number] 2.16.8 [id number] Worker's Compensation Social History Date Type Detail Facility Start: 12-22-2017 End: 12-22-2017 Assertion Unknown if ever smoked [facility] Work Phone: Start: 03-10-2019 End: 08-09-2023 Never smoked tobacco (finding) [facility] Functional Status Date Assessment Result Facility 11-27-2022 Functional Status Awake, Resting [facility] 11-27-2022 Functional Status Maintained [facility] Mental Status Date Assessment Result Facility 11-27-2022 Mental Status Orientation Oriented x 4 [facility] 11-27-2022 Mental Status [facility] Clinical Notes 05-29-2022 to 09-03-2023 Telephone Encounter - Maggi Lehman RN - 04/02/2023 4:35 PM EDTTelephone Encounter - Maggi Lehman RN - 04/02/2023 4:35 PM EDT Note Date & Type Note Facility 09-03-2023 Note . MICRO - Microbiology PROCEDURE: Throat Culture [*1] SOURCE: Throat BODY SITE: COLLECTED DATE/TIME: 09/01/2023 10:05 EST RECEIVED DATE/TIME: 09/01/2023 19:02 EST START DATE/TIME: 09/01/2023 19:03 EST FREE TEXT SOURCE: FINAL REPORTS Final Report [] Verified Date/Time/Personnel: 09/03/2023 07:15 EST Normal throat teena present Sensitivity Testing: Not Indicated PRELIMINARY REPORTS Preliminary Report [] Verified Date/Time/Personnel: 09/02/2023 11:40 EST Negative for upper respiratory pathogens at 24 hours. Performing Locations *1: This test was performed at: [address], [facility] , [facility] ([place]) 04-02-2023 Telephone encount er Note S: Patient spoke with [facility] nurse regarding her cost of a medication. B: Onset of symptoms/concern cost of the medication called Prolia A: trying to marleen for the cost of th Prolia Recommended she call and contact [facility]. R: Call Warm Transferred to [facility]. Patient understands care advice. No further needs at this time. Patient instructed to call back with new or worsening symptoms. Reason for Disposition Caller has medicine question only, adult not sick, AND triager answers question Protocols used: Medication Question [id number] [facility] 04-02-2023 Miscellaneous Notes Formattin g of this note might be different from the original. S: Patient spoke with [facility] nurse regarding her cost of a medication. B: Onset of symptoms/concern cost of the medication called Prolia A: trying to marleen for the cost of th Prolia Recommended she call and contact [facility]. R: Call Warm Transferred to [facility]. Patient understands care advice. No further needs at this time. Patient instructed to call back with new or worsening symptoms. Reason for Disposition Caller has medicine question only, adult not sick, AND triager answers question Protocols used: Medication Question [id number] documented in this encounter [facility] ADMISSION HISTORY AN D PHYSICIAL CHIEF COMPLAINT: HISTORY OF PRESENT ILLNESS: REVIEW OF SYSTEMS: ACTIVE PROBLEMS: (23) Breast cancer screening (823768637) Chronic constipation (597596022) DVT of deep femoral vein (2285634144) ANGELITA (generalized anxiety disorder) (66886864) GERD (gastroesophageal reflux disease) (311168202) Hemorrhoids (510000014) History of IVC filter placement in 2012 (7863922893) History of DVT in adulthood (9618941834) History of foot fracture, right fifth metatarsal and calcaneus (6548965051) History of gastric bypass (389753505) Holosystolic murmur /6 (195829142) Hyperlipidemia LDL goal <130 (20688117) Hypotension (498970583) Hypothyroidism (59391609) Increased BMI (body mass index) (68676351) Need for vaccination (1066256258) Non-smoker (48811289) Osteoporosis (944242328) Postmenopausal (496775808) Rectal bleeding (274180798) Screening mammogram, encounter for (333563629) Seasonal allergies (9383904147) Vitamin D deficiency (53370428) MEDICATIONS: Active Inpt Meds: None Active PRN Meds: None One Time Meds: None Active IV Meds: Lactated Ringers Infusion 1,000 mL (LR 1,000 mL) Start: 11/27/22 7:24:00 EDT, Rate: 50 mL/hr, 11/27/22 7:24:00 EDT ALLERGIES: (4) atorvastatin Effexor Nuvigil predniSONE FAMILY HISTORY: SOCIAL HISTORY: PHYSICAL EXAM: VITALS: [id number](kg) 11/27 07:3936.8--439226--85/28 69.2 24 Hr Tmax: 36.8 at 11/27 07:39 36 Hr Tmax: 36.8 at 11/27 07:39 Vital Signs are the last 5 in the past 48 hours. Weights display the last 5 within 7 days. Initial Wt: 11/27 69.2 kg 152 lb Current Wt: 11/27 69.2 kg 152 lb GENERAL: HEENT: CARDIOVASCULAR: RESPIRATORY: ABDOMEN: EXREMETIES: NEUROLOGICAL: PSYCHIATRIC: LABS: No 36hr Lab Data DIAGNOSTICS: IMPRESSION: PLAN: History and Physical Update I have examined the patient; reviewed the H&P and there are no changes to the H&P unless noted below. Future Appointments Appointment Date:12/21/2022 10:20:00 AM Scheduled Provider:JARED PEREYRA APRN, CNP Location:[facility] Appointment Type:PC OV Follow Up Future Scheduled Tests Laboratory* Thyroid Stimulating Hormone 11/27/22 * Free T4 11/27/22 * Complete Blood Count 11/27/22 * Lipid Profile 11/27/22 * Vitamin D Level 11/27/22 * Complete Metabolic Panel 11/27/22 [facility] 04-28-2023 Hospital Discharge instructions Patient Education 11/27/2022 09:36:49 Monitored Anesthesia Care, Care After Monitored Anesthesia Care, Care After These instructions provide you with information about caring for yourself after your procedure. Your health care provider may also give you more specific instructions. Your treatment has been plannedaccording to current medical practices, but problems sometimes occur. Call your health care provider if you have any problems or questions after your procedure. What can I expect after the procedure? After your procedure, you may: Feel sleepy for several hours. Feel clumsy and have poor balance for several hours. Feel forgetful about what happened after the procedure. Have poor judgment for several hours. Feel nauseous or vomit. Have a sore throat if you had a breathing tube during the procedure. Follow these instructions at home: For at least 24 hours after the procedure: Have a responsible adult stay with you. It is important to have someone help care for you until youare awake and alert. Rest as needed. Do not: ?Participate in activities in which you could fall or become injured. ?Drive. ?Use heavy machinery. ?Drink alcohol. ?Take sleeping pills or medicines that cause drowsiness. ?Make important decisions or sign legal documents. ?Take care of children on your own. Eating and drinking Follow the diet that is recommended by your health care provider. If you vomit, drink water, juice, or soup when you can drink without vomiting. Make sure you have little or no nausea before eating solid foods. General instructions Take yjad-zsw-gjfptwh and prescription medicines only as told by your health care provider. If you have sleep apnea, surgery and certain medicines can increase your risk for breathing problems. Follow instructions from your health care provider about wearing your sleep device: ?Anytime you are sleeping, including during daytime naps. ?While taking prescription pain medicines, sleeping medicines, or medicines that make you drowsy. If you smoke, do not smoke without supervision. Keep all follow-up visits as told by your health care provider. This is important. Contact a health care provider if: You keep feeling nauseous or you keep vomiting. You feel light-headed. You develop a rash. You have a fever. Get help right away if: You have trouble breathing. Summary For several hours after your procedure, you may feel sleepy and have poor judgment. Have a responsible adult stay with you for at least 24 hours or until you are awake and alert. This information is not intended to replace advice given to you by your health care provider. Make sure you discuss any questions you have with your health care provider. Document Released: 11/08/2016 Document Revised: 10/17/2018 Document Reviewed: 11/08/2016 [employer] Patient Education 2020 [employer]. 11/27/2022 09:36:47 Colonoscopy, Adult, Care After Colonoscopy, Adult, Care After This sheet gives you information about how to care for yourself after your procedure. Your health care provider may also give you more specific instructions. If you have problems or questions, contact your health care provider. What can I expect after the procedure? After the procedure, it is common to have: A small amount of blood in your stool for 24 hours after the procedure. Some gas. Mild abdominal cramping or bloating. Follow these instructions at home: General instructions For the first 24 hours after the procedure: ?Do not drive or use machinery. ?Do not sign important documents. ?Do not drink alcohol. ?Do your regular daily activities at a slower pace than normal. ?Eat soft, nxkb-rb-nbdvyb foods. Take eter-vdi-ycljqpa or prescription medicines only as told by your health care provider. Relieving cramping and bloating Try walking around when you have cramps or feel bloated. Apply heat to your abdomen as told by your health care provider. Use a heat source that your healthcare provider recommends, such as a moist heat pack or a heating pad. ?Place a towel between your skin and the heat source. ?Leave the heat on for 20 30 minutes. ?Remove the heat if your skin turns bright red. This is especially important if you are unable to feel pain, heat, or cold. You may have a greater risk of getting burned. Eating and drinking Drink enough fluid to keep your urine pale yellow. Resume your normal diet as instructed by your health care provider. Avoid heavy or fried foods thatare hard to digest. Avoid drinking alcohol for as long as instructed by your health care provider. Contact a health care provider if: You have blood in your stool 2 3 days after the procedure. Get help right away if: You have more than a small spotting of blood in your stool. You pass large blood clots in your stool. Your abdomen is swollen. You have nausea or vomiting. You have a fever. You have increasing abdominal pain that is not relieved with medicine. Summary After the procedure, it is common to have a small amount of blood in your stool. You may also have mild abdominal cramping and bloating. For the first 24 hours after the procedure, do not drive or use machinery, sign important documents, or drink alcohol. Contact your health care provider if you have a lot of blood in your stool, nausea or vomiting, a fever, or increased abdominal pain. This information is not intended to replace advice given to you by your health care provider. Make sure you discuss any questions you have with your health care provider. Document Released: 03/02/2005 Document Revised: 05/11/2018 Document Reviewed: 09/29/2016 [employer] Patient Education 2020 [employer]. Follow Up Care 11/13/2022 11:50:22 With:SALLY ESPOSITO Address: [address] [facility] [address] [place] [address]- [phone] Business (1) When:Within 5 Year(s) [facility] 04-28-2023 Summary of episode note Discharge Instructions Thank you for allowing [facility] to assist you with your healthcare needs. The following is importantdischarge information regarding your hospital visit. Your Care Team JARED PEREYRA APRN, CNP What to do next Scheduled Follow-Up Appointments Appointment Type When With Where Contact InformationPC OV Follow Up 11/30/2022 09:00 AM JARED MEDEL APRN, CNP [facility] Follow Up Appointments Follow Up with SALLY ESPOSITO When In 5 years Where: [address] [place] [address]- [phone] Business (1) Allergies Effexor (Hives) Nuvigil (Lip swelling, Hives) atorvastatin (Nausea) predniSONE (SOB, Edema) Medications Please ask your primary doctor or pharmacist before taking any other medication not listed, including over the counter drugs, herbal medications, vitamins and or supplements as they may interact withyour home medications. What How Much When Why Instructions Last Dose Unchanged acetaminophen (Tylenol 8 HR Arthritis Pain 650 mg oral tablet, extended release) 3 tab(s) by mouth Two (2) times a day as needed for as needed for pain pretty musch every day per pt Unchanged apixaban (Eliquis 2.5 mg oral tablet) 1 tab(s) by mouth Two (2) times a day in absence of PCP Unchanged buprenorphine (buprenorphine 7.5 mcg/ hr transdermal film, extended release) 1 patch(es) Transdermal Every week Unchanged buPROPion (buPROPion 300 mg/ 24 hours (XL) oral tablet, extended release) 1 tab(s) by mouth Once a day ANGELITA (generalized anxiety disorder) Duration: 90 Days Unchanged denosumab (Prolia 60 mg/ mL subcutaneous solution) 1 Milliliter Subcutaneous Every 6 months Unchanged omeprazole (omeprazole 40 mg oral delayed release capsule) 1 cap by mouth Once a day Duration: 90 Days Unchanged rosuvastatin (rosuvastatin 40 mg oral tablet) 1 tab(s) by mouth Once a day Hyperlipidemia LDL goal <130 Duration: 90 Days Unchanged senna (Senokot 8.6 mg oral tablet) 1 tab(s) by mouth Daily at bedtime Chronic constipation Duration: 30 Days Please take this list to your next doctor s visit. Bring all medications you take, including over the counter medications, herbals and other supplements with you to your doctor s visit. Patients and families are reminded to discard old lists and to update any records with all medication providers or retail pharmacies. Education Materials Monitored Anesthesia Care, Care After These instructions provide you with information about caring for yourself after your procedure. Your health care provider may also give you more specific instructions. Your treatment has been plannedaccording to current medical practices, but problems sometimes occur. Call your health care provider if you have any problems or questions after your procedure. What can I expect after the procedure? After your procedure, you may: Feel sleepy for several hours. Feel clumsy and have poor balance for several hours. Feel forgetful about what happened after the procedure. Have poor judgment for several hours. Feel nauseous or vomit. Have a sore throat if you had a breathing tube during the procedure. Follow these instructions at home: For at least 24 hours after the procedure: Have a responsible adult stay with you. It is important to have someone help care for you until youare awake and alert. Rest as needed. Do not: ? Participate in activities in which you could fall or become injured. ? Drive. ? Use heavy machinery. ? Drink alcohol. ? Take sleeping pills or medicines that cause drowsiness. ? Make important decisions or sign legal documents. ? Take care of children on your own. Eating and drinking Follow the diet that is recommended by your health care provider. If you vomit, drink water, juice, or soup when you can drink without vomiting. Make sure you have little or no nausea before eating solid foods. General instructions Take ppbn-ytm-sfwjfbf and prescription medicines only as told by your health care provider. If you have sleep apnea, surgery and certain medicines can increase your risk for breathing problems. Follow instructions from your health care provider about wearing your sleep device: ? Anytime you are sleeping, including during daytime naps. ? While taking prescription pain medicines, sleeping medicines, or medicines that make you drowsy. If you smoke, do not smoke without supervision. Keep all follow-up visits as told by your health care provider. This is important. Contact a health care provider if: You keep feeling nauseous or you keep vomiting. You feel light-headed. You develop a rash. You have a fever. Get help right away if: You have trouble breathing. Summary For several hours after your procedure, you may feel sleepy and have poor judgment. Have a responsible adult stay with you for at least 24 hours or until you are awake and alert. This information is not intended to replace advice given to you by your health care provider. Make sure you discuss any questions you have with your health care provider. Document Released: 11/08/2016 Document Revised: 10/17/2018 Document Reviewed: 11/08/2016 [employer] Patient Education 2020 [employer]. Colonoscopy, Adult, Care After This sheet gives you information about how to care for yourself after your procedure. Your health care provider may also give you more specific instructions. If you have problems or questions, contact your health care provider. What can I expect after the procedure? After the procedure, it is common to have: A small amount of blood in your stool for 24 hours after the procedure. Some gas. Mild abdominal cramping or bloating. Follow these instructions at home: General instructions For the first 24 hours after the procedure: ? Do not drive or use machinery. ? Do not sign important documents. ? Do not drink alcohol. ? Do your regular daily activities at a slower pace than normal. ? Eat soft, tyze-or-pizzqz foods. Take gfrg-hqo-iomscec or prescription medicines only as told by your health care provider. Relieving cramping and bloating Try walking around when you have cramps or feel bloated. Apply heat to your abdomen as told by your health care provider. Use a heat source that your healthcare provider recommends, such as a moist heat pack or a heating pad. ? Place a towel between your skin and the heat source. ? Leave the heat on for 20 30 minutes. ? Remove the heat if your skin turns bright red. This is especially important if you are unable to feel pain, heat, or cold. You may have a greater risk of getting burned. Eating and drinking Drink enough fluid to keep your urine pale yellow. Resume your normal diet as instructed by your health care provider. Avoid heavy or fried foods thatare hard to digest. Avoid drinking alcohol for as long as instructed by your health care provider. Contact a health care provider if: You have blood in your stool 2 3 days after the procedure. Get help right away if: You have more than a small spotting of blood in your stool. You pass large blood clots in your stool. Your abdomen is swollen. You have nausea or vomiting. You have a fever. You have increasing abdominal pain that is not relieved with medicine. Summary After the procedure, it is common to have a small amount of blood in your stool. You may also have mild abdominal cramping and bloating. For the first 24 hours after the procedure, do not drive or use machinery, sign important documents, or drink alcohol. Contact your health care provider if you have a lot of blood in your stool, nausea or vomiting, a fever, or increased abdominal pain. This information is not intended to replace advice given to you by your health care provider. Make sure you discuss any questions you have with your health care provider. Document Released: 03/02/2005 Document Revised: 05/11/2018 Document Reviewed: 09/29/2016 [facility] Patient Education 2020 [employer]. Additional Information VACCINATE! IT SAVES LIVES! Members of the community who have not yet received the COVID-19 vaccine and would like to receive it can visit one of [facility] vaccine clinics. There are many vaccine clinic locations within the [facility]. For locations and available times, please visit [email or web address].[place].gov/. It is important to note that some COVID mobile vaccine clinics are held outdoors and may be canceled in rainy or stormy conditions. To learn more about pediatric vaccinations (ages 5-11), we invite you to visit the [facility] webpage. [email or web address]://www.[email or web address].org/pages/0897-Odyui-Cplmfmctbej-Droinxotst-Oatwv-Jlq stions.htmlTo learn more about the COVID-19 vaccine, we invite you to visit the CDC website for a list of frequently asked questions. https://www.cdc.gov/coronavirus/2019-ncov/vaccines/faq.html [facility] Patient Portal Access Instructions: Stay connected with your healthcare team and access your personal medical information anytime with the [facility] Patient Portal.If you would like a full copy of your medical records, please contact the [facility] Medical Records Department, Wednesday through Wednesday between 8a.m. and 4:30p.m. Please follow the directions below to access the portal: 1.Access the email account you provided upon registration to the hospital.2.Look for an invitation email from [facility].3.Open the email and access the invitation link: Accept Invitation to [facility].Fill in the required zamora to create your account. Sign into [email or web address] with your username and password that you created in the above steps to stay up to date. You can then view a summary of results, a summary of your visits, and the ability to download your summaries to your computer or send the information securely to a physician. Remember that your healthcare information is confidential, so carefully consider who you will allow to register on the [facility] Patient Portal for access to your information. You can also access the [facility] Patient Portal on the [employer] clemencia. Simply click on Health Records under [employer] and then click on the Pay with a Tweet logo. HOW TO SAFELY DISPOSE OF PRESCRIPTION MEDICATIONS Please use one of the following methods to safely dispose of your unused medications. 1.Use a drug disposal kit: the drug disposal pouch allows you to safely discard your old and unuseddrugs. Ask your nurse to give you one when you are discharged.2.Visit a local take-back location: Many local pharmacies and police departments have programs that collect old and unwanted prescriptiondrugs. Call your local pharmacy or go to http://Zattoo.Enernetics/4D3Kb0g to find one close to you.3.Make use of household items: Use cat litter or old coffee grounds to dispose medications if other options arenot available. Mix your drugs with these household products, seal them in an airtight container andthrow it into the garbage. Call [facility]: [phone] to be sure your drugs can be disposed of in this way. Some medicines may require a different approach.4.Never flush your medications down the toilet. IF YOU HAVE BEEN PRESCRIBED AN OPIOID FOR PAIN If you have been prescribed an opioid (such as hydrocodone, oxycodone or morphine), it is critical to understand the possible side effects and risks of opioid pain medications. Even when taken as directed, opioids can have several side effects including: Tolerance, meaning you might need to take more of a medication for the same pain relief. Nausea, vomiting and/or constipation. Sleepiness, dizziness, dry mouth, confusion, depression or itching. Physical dependence, meaning you have withdrawal symptoms when a medication is stopped, can develop within a few days. KNOW YOUR RESPONSIBILITIES It is important to know exactly how much and how often to take the opioid pain medications you are prescribed. Never take opioids in higher amounts or more often than prescribed. Do not combine opioids with alcohol or other drugs that cause drowsiness, such as benzodiazepines, also known as benzos, including diazepam and alprazolam, muscle relaxants or sleep aids. Never sell or share prescription opioids. This is illegal. Store opioids in a secure place and out of reach of others (including children, family, friends and visitors). The last page of this document has been signed and retained as a CHART COPY. Signatures Patient Education Materials Monitored Anesthesia Care, Care After Colonoscopy, Adult, Care After Medication Leaflets My discharge plan and instructions have been reviewed and explained to me and I,ELIZABETH CURTIS understand my current condition and have read and understand these discharge instructions. I have received a written copy of the plan/instructions. If I have questions, I am aware that I should contact my doctor. Patient/Gold [employer]er [employer] Signature: Date/Time: Relationship to Patient: Witness Name/Signature: Date/Time: [facility]04-28-2023 Anesthesiology Consult note Patient: ELIZABETH CURTIS Age: 57 years Sex: Female : 1965 Associated Diagnoses: None Author: DENICE ARNETT APRN-HEATING TECHNICIAN Assessment Postanesthesia assessment Vitals: Vital signs from flowsheet : Vital Signs 11/27/2022 9:45 EDT Heart Rate Monitored 60 bpm bpm Respiratory Rate - Anes 19 br/min br/min 11/27/2022 9:40 EDT Heart Rate Monitored 59 bpm bpm Respiratory Rate - Anes 21 br/min br/min 11/27/2022 9:35 EDT Heart Rate Monitored 63 bpm bpm Respiratory Rate - Anes 22 br/min br/min 11/27/2022 9:30 EDT Heart Rate Monitored 60 bpm bpm Respiratory Rate - Anes 15 br/min br/min Systolic Blood Pressure Non-Invasive 93 mmHg mmHg Diastolic Blood Pressure Non-Invasive 59 mmHg mmHg 11/27/2022 9:27 EDT Systolic Blood Pressure Non-Invasive 117 mmHg mmHg Diastolic Blood Pressure Non-Invasive 88 mmHg mmHg 11/27/2022 7:39 EDT Temperature Temporal Artery 36.8 DegC Apical Heart Rate 71 bpm Respiratory Rate 15 br/min Systolic Blood Pressure Non-Invasive 108 mmHg Diastolic Blood Pressure Non-Invasive 73 mmHg . Mental status: at preoperative baseline. Respiratory function: respirations are non-labored. Respiratory support: none. CV function: Normal rate. Cardiovascular support: none. Pain. Nausea status: see nursing documentation of medications. Postoperative hydration status: within normal limits. Digitally Signed by DENICE ARNETT on 11/27/2022 09:51 AM [facility]04-28-2023 Note [place] ADMISSION HISTORY AND PHYSICIAL CHIEF COMPLAINT: HISTORY OF PRESENT ILLNESS: REVIEW OF SYSTEMS: ACTIVE PROBLEMS: (23) Breast cancer screening (159782938) Chronic constipation (615849622) DVT of deep femoral vein (8731071503) ANGELITA (generalized anxiety disorder) (36608999) GERD (gastroesophageal reflux disease) (210246146) Hemorrhoids (339091970) History of IVC filter placement in 2012 (6704575599) History of DVT in adulthood (4457970728) History of foot fracture, right fifth metatarsal and calcaneus (4598816260) History of gastric bypass (792818503) Holosystolic murmur 1/6 (219599967) Hyperlipidemia LDL goal <130 (31483403) Hypotension (160806905) Hypothyroidism (56966441) Increased BMI (body mass index) (66545895) Need for vaccination (3584203917) Non-smoker (40955046) Osteoporosis (066201091) Postmenopausal (060754466) Rectal bleeding (584462998) Screening mammogram, encounter for (714274092) Seasonal allergies (5120959185) Vitamin D deficiency (72407383) MEDICATIONS: Active Inpt Meds: None Active PRN Meds: None One Time Meds: None Active IV Meds: Lactated Ringers Infusion 1,000 mL (LR 1,000 mL) Start: 11/27/22 7:24:00 EDT, Rate: 50 mL/hr, 11/27/22 7:24:00 EDT ALLERGIES: (4) atorvastatin Effexor Nuvigil predniSONE FAMILY HISTORY: SOCIAL HISTORY: PHYSICAL EXAM: VITALS: CyijdkLzsuHDVcdvaVZGuF3GRL8BtvnEj(kg) 11/27 07:3936.8--379073--19/28 69.2 24 Hr Tmax: 36.8 at 11/27 07:39 36 Hr Tmax: 36.8 at 11/27 07:39 Vital Signs are the last 5 in the past 48 hours. Weights display the last 5 within 7 days. Initial Wt: 11/27 69.2 kg 152 lb Current Wt: 11/27 69.2 kg 152 lb GENERAL: HEENT: CARDIOVASCULAR: RESPIRATORY: ABDOMEN: EXREMETIES: NEUROLOGICAL: PSYCHIATRIC: LABS: No 36hr Lab Data DIAGNOSTICS: IMPRESSION: PLAN: History and Physical Update I have examined the patient; reviewed the H&P and there are no changes to the H&P unless noted below. Digitally Signed by SALLY ESPOSITO MD on 11/27/2022 09:30 AM [facility]04-28-2023 Anesthesiology Consult note Patient: ELIZABETH CURTIS Age: 57 years Sex: Female : 1965 Associated Diagnoses: None Author: DENICE ARNETT APRN-HEATING TECHNICIAN Preoperative Information Time of last food or liquid consumption: 11/26/2022 23:00:00 Anesthesia history Patient's history: negative. Family's history: negative. Review of Systems Ear/Nose/Mouth/Throat: Negative except as documented in history of present illness. Respiratory: Negative except as documented in history of present illness. Cardiovascular: Negative except as documented in history of present illness. Gastrointestinal: Negative except as documented in history of present illness. Genitourinary: Negative except as documented in history of present illness. Endocrine: Negative except as documented in history of present illness. Musculoskeletal: Negative except as documented in history of present illness. Integumentary: Negative except as documented in history of present illness. Neurologic: Negative except as documented in history of present illness. Health Status Allergies: Allergic Reactions (Selected) Severity Not Documented Atorvastatin- Nausea. Effexor- Hives. Nuvigil- Hives and lip swelling. PredniSONE- Sob and edema., Allergies (4) ActiveReaction atorvastatinNausea EffexorHives NuvigilHives predniSONESOB Current medications: (Selected) Inpatient Medications Ordered LR 1,000 mL: 50 mL/hr, Intravenous Prescriptions Prescribed Eliquis 2.5 mg oral tablet: 2.5 mg, 1 tab(s), Oral, BID, in absence of PCP, 180 tab(s), 1 Refill(s) Prolia 60 mg/mL subcutaneous solution: 60 mg, 1 mL, Subcutaneous, q6mo, 1 mL, 2 Refill(s) Senokot 8.6 mg oral tablet: 8.6 mg, 1 tab(s), Oral, qHS, for 30 day(s), 30 tab(s), 1 Refill(s) buPROPion 300 mg/24 hours (XL) oral tablet, extended release: 300 mg, 1 tab(s), Oral, qDay, for 90 day(s), 90 tab(s), 1 Refill(s) omeprazole 40 mg oral delayed release capsule: 40 mg, 1 cap(s), Oral, qDay, for 90 day(s), 90 cap(s), 1 Refill(s) rosuvastatin 40 mg oral tablet: 40 mg, 1 tab(s), Oral, qDay, for 90 day(s), 90 tab(s), 1 Refill(s) Documented Medications Documented Tylenol 8 HR Arthritis Pain 650 mg oral tablet, extended release: 1,950 mg, 3 tab(s), Oral, BID, pretty musch every day per pt, PRN: as needed for pain, 0 Refill(s) buprenorphine 7.5 mcg/hr transdermal film, extended release: 1 patch(es), Transdermal, qWeek, 0 Refill(s), Medications (1) Active Scheduled: (0) Continuous: (1) Lactated Ringers 1,000 mL 1,000 mL, Intravenous, 50 mL/hr PRN: (0) Problem list: Medical Chronic constipation / SNOMED CT 427616576 / Confirmed DVT of deep femoral vein / SNOMED CT 6031795495 / Confirmed GERD (gastroesophageal reflux disease) / SNOMED CT 740767400 / Confirmed ANGELITA (generalized anxiety disorder) / SNOMED CT 57172355 / Confirmed History of DVT in adulthood / SNOMED CT 9501087179 / Confirmed History of foot fracture, right fifth metatarsal and calcaneus / SNOMED CT 7158671024 / Confirmed History of gastric bypass / SNOMED CT 024986382 / Confirmed Hemorrhoids / SNOMED CT 719624021 / Confirmed History of IVC filter placement in 2011 / SNOMED CT 2551482001 / Confirmed Hyperlipidemia LDL goal <130 / SNOMED CT 30500072 / Confirmed Hypothyroidism / SNOMED CT 62384190 / Confirmed Increased BMI (body mass index) / SNOMED CT 72861791 / Confirmed Hypotension / SNOMED CT 200855388 / Confirmed Non-smoker / SNOMED CT 44472451 / Confirmed Osteoporosis / SNOMED CT 833871847 / Confirmed Holosystolic murmur 08/07 / SNOMED CT 375765347 / Confirmed Screening mammogram, encounter for / SNOMED CT 926867892 / Confirmed Breast cancer screening / SNOMED CT 157067575 / Confirmed Postmenopausal / SNOMED CT 353516879 / Confirmed Rectal bleeding / SNOMED CT 492977487 / Confirmed Seasonal allergies / SNOMED CT 1903978758 / Confirmed Need for vaccination / SNOMED CT 5345311874 / Confirmed Vitamin D deficiency / SNOMED CT 23157984 / Confirmed, Active Problems (23) Breast cancer screening Chronic constipation DVT of deep femoral vein ANGELITA (generalized anxiety disorder) GERD (gastroesophageal reflux disease) Hemorrhoids History of IVC filter placement in 2011 History of DVT in adulthood History of foot fracture, right fifth metatarsal and calcaneus History of gastric bypass Holosystolic murmur /6 Hyperlipidemia LDL goal <130 Hypotension Hypothyroidism Increased BMI (body mass index) Need for vaccination Non-smoker Osteoporosis Postmenopausal Rectal bleeding Screening mammogram, encounter for Seasonal allergies Vitamin D deficiency Histories Past Medical History: Resolved Depression, prolonged (71024847): Resolved. Palpitation (697533028): Resolved. Need for vaccination (5308621612): Resolved. Family History: Cancer Mother Grandparent Empyema Father Breast cancer Sister Hypertension Brother Sister Heart disease Father Brother Parkinson's disease Grandparent Diabetes Sister Colon cancer Sister Procedure history: PFT - Pulmonary function tests (8225974352) on 04/19/2019 at 53 Years. Comments: 05/20/2021 9:43 POPPY - Nataly Vogel MA (ABR-OE) Normal Echocardiogram (8670965345) on 04/12/2019 at 53 Years. Comments: 05/20/2021 9:44 EDT - Nataly Vogel MA (ABR-OE) EF 60-65% Echocardiogram (3953588739) on 01/18/2017 at 51 Years. Comments: 05/20/2021 9:44 EDT - Nataly Vogel MA (ABR-OE) EF 55-65% CT of thorax (691359201) on 11/07/2013 at 48 Years. IVC - Insertion of inferior vena caval filter (1206188350) in 2011 at 45 Years. Cardiovascular stress testing (088159392) on 04/22/2010 at 44 Years. History of gastric bypass (2951109262). Hysterectomy and bilateral salpingo-oophorectomy sample (573278317). Social History Social & Psychosocial Habits Alcohol 03/10/2019 Use: Current Substance Abuse 03/10/2019 Use: Never Tobacco 03/10/2019 Tobacco Use: Never (less than 100 in l Comment: No smoke exposure - 03/10/2019 08:38 - Abbi Olsen LPN Home/Environment 03/10/2019 Primary Cafe Assistant: Self Nutrition/Health 03/10/2019 Caffeine intake amount: Coffee every day and occasional pop . Physical Examination No qualifying data available General: Alert and oriented. Airway: Normal neck range of motion. Mallampati classification: II (soft palate, fauces, uvula visible). Head: Normocephalic. Dentition Evaluation: Intact, Own teeth. Neck: Full range of motion. Respiratory: Lungs are clear to auscultation. Cardiovascular: Normal rate. Heart Sounds: Normal. Gastrointestinal: Soft. Musculoskeletal Normal range of motion. Integumentary: Intact, Warm, Dry. Neurologic: Alert, Oriented. Review / Management Results review: No qualifying data available , Lab results 11/27/2022 7:40 EDT SN - GCD - Post-operative Diagnosis RECTAL BLEED SN - GCD - Case Level OPD Level 3 11/27/2022 7:38 EDT SN - Cul - Culture Type No Specimen per Surgeon SN - Cul - Kind Specimen 11/27/2022 7:38 EDT SN - CAt - Case Attendee SN - CAt - Case Attendee SN - CAt - Case Attendee SN - CAt - Case Attendee SN - CAt - Case Attendee SN - CAt - Case Attendee SN - CAt - Case Attendee SN - CAt - Case Attendee SN - CAt - Role Performed Primary Surgeon SN - CAt - Role Performed HEATING TECHNICIAN SN - CAt - Role Performed Patient Care Coordinator 1 SN - CAt - Role Performed Paint Sprayer Sandblaster . Assessment and Plan [place] [employer] Anesthesiologists (ASA) physical status classification: Class II. Anesthetic Preoperative Plan Premedication: intravenous. Anesthetic technique: MAC. Induction: intravenously. Maintenance airway: Mask. Postoperative pain management: Per surgeon. Risks discussed: nausea, vomiting, headache, sore throat, dental injury, hypotension, allergic reaction, serious complications. Informed consent: signed by patient. Notes: GERD; DCT; on eliquis, last dose 11/23/22. Digitally Signed by DENICE ARNETT on 11/27/2022 09:15 AM [facility]10-28-2022 Note ORIGINAL EXAMINATION: TWO XRAY VIEWS OF THE RIGHT HIP 05/29/2022 10:50 am COMPARISON: None. HISTORY: ORDERING SYSTEM PROVIDED HISTORY: Reason for Exam: hip pain that has been ongoing and worsening for the past month, conservative treatment not effective FINDINGS: No acute fracture or dislocation. The alignment is within normal limits. No significant degenerative change. IMPRESSION: No acute osseous abnormality or significant degenerative change. Interpreted by: Adonay Mcfarland Preliminary Report By: Adonay Mcfarland Electronically signed By Adonay Mcfarland Dictated Date: 05/29/2022 11:42:13 AM Prelim Date: 05/29/2022 11:42:59 AM Sign Date: 05/29/2022 11:42:59 AM Ordering Provider: JARED PEREYRA [facility]10-28-2022 Note ORIGINAL EXAMINATION: TWO XRAY VIEWS OF THE RIGHT HIP 05/29/2022 10:50 am COMPARISON: None. HISTORY: ORDERING SYSTEM PROVIDED HISTORY: Reason for Exam: hip pain that has been ongoing and worsening for the past month, conservative treatment not effective FINDINGS: No acute fracture or dislocation. The alignment is within normal limits. No significant degenerative change. IMPRESSION: No acute osseous abnormality or significant degenerative change. Interpreted by: Adonay Mcfarland Preliminary Report By: Adonay Mcfarland Electronically signed By Adonay Mcfarland Dictated Date: 05/29/2022 11:42:13 AM Prelim Date: 05/29/2022 11:42:59 AM Sign Date: 05/29/2022 11:42:59 AM Ordering Provider[facility] Future Appointments Appointment Date:08/27/2021 09:00:00 AM Scheduled Provider: Location:[facility] Appointment Type:CV OV Appointment Date:09/29/2021 10:20:00 AM Scheduled Provider:JARED PEREYRA APRN, CNP Location:[facility] Appointment Type:PC OV Future Scheduled Tests Laboratory* Complete Blood Count 10/27/21 * Lipid Profile 10/27/21 * Vitamin D Level 10/27/21 * Complete Metabolic Panel 10/27/21 [facility] + Plan note Future Appointments Appointment Date:06/23/2021 10:00:00 AM Scheduled Provider:JARED PEREYRA APRN, CNP Location:[facility] Appointment Type:PC OV Appointment Date:08/27/2021 09:00:00 AM Scheduled Provider: Location:[facility] Appointment Type:CV OV Appointment Date:09/29/2021 10:20:00 AM Scheduled Provider:JARED PEREYRA APRN, CNP Location:[facility] Appointment Type:PC OV Future Scheduled Tests Laboratory* Complete Blood Count 10/27/21 * Lipid Profile 10/27/21 * Vitamin D Level 10/27/21 * Complete Metabolic Panel 10/27/21 Radiology* XR Spine Thoracic 2 Views 06/17/21 * XR Spine Lumbar AP/LAT 06/17/21 [facility] + Plan note Future Appointments Appointment Date:07/07/2021 08:00:00 AM Scheduled Provider:JARED PEREYRA APRN, CNP Location:[facility] Appointment Type:PC OV Follow Up Appointment Date:08/27/2021 09:00:00 AM Scheduled Provider: Location:[facility] Appointment Type:CV OV Appointment Date:09/29/2021 10:20:00 AM Scheduled Provider:JARED PEREYRA APRN, CNP Location:[facility] Appointment Type:PC OV Future Scheduled Tests Laboratory* Complete Blood Count 10/27/21 * Lipid Profile 10/27/21 * Vitamin D Level 10/27/21 * Complete Metabolic Panel 10/27/21 Radiology* XR Spine Thoracic 2 Views 06/17/21 * XR Spine Lumbar AP/LAT 06/17/21 [facility] Evaluation + Plan note Future Appointments Appointment Date:08/27/2021 09:00:00 AM Scheduled Provider: Location:[facility] Appointment Type:CV OV Appointment Date:09/29/2021 10:20:00 AM Scheduled Provider:JARED PEREYRA APRN - LADLE OPERATOR Location:[facility] Appointment Type:PC OV Future Scheduled Tests Laboratory* Complete Blood Count 10/27/21 * Lipid Profile 10/27/21 * Vitamin D Level 10/27/21 * Complete Metabolic Panel 10/27/21 Radiology* XR Spine Thoracic 2 Views 06/17/21 * XR Spine Lumbar AP/LAT 06/17/21 [facility] Evaluation + Plan note Future Appointments Appointment Date:11/30/2022 09:00:00 AM Scheduled Provider:JARED PEREYRA STOCK DRIVER - LADLE OPERATOR Location:[facility] Appointment Type:PC OV Follow Up Future Scheduled Tests Laboratory* Thyroid Stimulating Hormone 11/27/22 * Free T4 11/27/22 * Complete Blood Count 11/27/22 * Lipid Profile 11/27/22 * Vitamin D Level 11/27/22 * Complete Metabolic Panel 11/27/22 Radiology* XR Spine Thoracic 2 Views 06/17/21 * XR Spine Lumbar AP/LAT 06/17/21 [facility] Evaluation + Plan note Future Appointments Appointment Date:02/07/2024 08:20:00 AM Scheduled Provider:JARED PEREYRA STOCK DRIVER - LADLE OPERATOR Location:[facility] Appointment Type:PC OV Follow Up Future Scheduled Tests Laboratory* Thyroid Stimulating Hormone 02/07/24 * Thyroid Stimulating Hormone 08/04/23 * Thyroid Stimulating Hormone 11/27/22 * Free T4 02/07/24 * Free T4 08/04/23 * Free T4 11/27/22 * Complete Blood Count 02/07/24 * Lipid Profile 02/07/24 * Lipid Profile 08/04/23 * Lipid Profile 11/27/22 * Albumin/Creatinine Ratio, Random Urine 08/04/23 * Vitamin D Level 02/07/24 * Vitamin D Level 08/04/23 * Vitamin D Level 11/27/22 * Complete Metabolic Panel 02/07/24 * Complete Metabolic Panel 08/04/23 * Complete Metabolic Panel 11/27/22 Radiology* MA Mammo Screening Bilateral w/ Artem 08/09/23 [facility] Hospital course Narrative No data available for this section [facility] Hospital Discharge instructions No data available for this section [facility] Progress note No data available for this section [facility] Summary Purpose Family History No Family History Records FoundThere may be information available, but it has not been provided by the sender.No Family History Records FoundNo Family History Records Found No data available for this section No data available for this section No Family History Records Found Advance Directives No Advanced Directives Records FoundThere may be information available, but it has not been provided by the sender.No Advanced Directives Records FoundNo Advanced Directives Records FoundNo Advanced Directives Records Found Instructions Instruction Description Start Date Patient advised to follow-up with Primary Care Physician for BMI management. Assessments There may be information available, but it has not been provided by the sender. Review of System There may be information available, but it has not been provided by the sender. Additional Source Comments INFORMATION SOURCE (unrecogn ized section and content) DATE CREATED AUTHOR AUTHOR'S ORGANIZ ATION 08/25/2018 [facility] DATE CREATED AUTHOR AUTHOR'S ORGANIZ ATION 04/03/2023 [facility] [employer] [facility] DATE CREATED AUTHOR AUTHOR'S ORGANIZ ATION 09/16/2023 [facility] ([place]) Care Team (unrecognized sect ion and content) Care Team Personnel Name: JARED PEREYRA APRN - LADLE OPERATOR Position: P4 Advanced Practice Nurse Member Role: Primary Care Physician Address: Address: [address] [place], [place] [address] Care Team Related Persons Name: LADARIUS CURTIS Patient Care team informatio n (unrecognized section and content) Reason for Visit (unrecogniz ed section and content) FOR RECORDS PERTAINING TO PATIENTS WHO ARE OR HAVE BEEN ENROLLED IN A CHEMICAL DEPENDENCY/SUBSTANCEABUSE PROGRAM, SOME INFORMATION MAY BE OMITTED. This clinical summary was aggregated from multiple sources. Caution should be exercised in using it in the provision of clinical care. This summary normalizes information from multiple sources, and as a consequence, information in this document may materially change the coding, format and clinical context of patient data. In addition, data may be omitted in some cases. CLINICAL DECISIONS SHOULD BE BASED ON THE PRIMARY CLINICAL RECORDS. [employer] provides no warranty or guarantee of the accuracy or completeness of information in this document.
--- NOTE | 2023-09-23 07:06 | BI_ITS ---
MAMMOGRAPHY - BILATERAL SCREENING REASON FOR EXAM: Female, 57 years old. Routine annual screening examination. PERTINENT HISTORY: Sisters with breast cancer. Aunts with breast cancer. TECHNIQUE: Digital bilateral breast angelia (3D mammographic acquisition) in the CC and MLO projections. 2-D mediolateral oblique (MLO) and craniocaudad (CC) views of both breasts were obtained. CAD: Full Field Digital Mammography with Computer Added Detection was performed. COMPARISON: Comparison is made with prior study dated September 22, 2022 and September 22, 2021. FINDINGS: Breast Composition: The breasts are heterogeneously dense, which may obscure small masses. There are no dominant masses or suspicious calcifications. No other significant abnormalities are identified. There has been no significant change since the prior study. BI/SCRN MAMM (CAD)W/ANGELIA BILAT IMPRESSION: Stable bilateral screening mammogram. Yearly follow-up mammogram recommended. (A) ASSESSMENT CATEGORY: BIRADS Category 1: Negative. A letter regarding these results will be sent to the patient by the facility within 30 days. Approximately 10% of breast cancers are not detected by mammography. A normal mammogram should not delay biopsy of a clinically suspicious abnormality. [id number] Electronically Signed: Lester Cervantes MD at 8:11 EST ,
== END | disposition home or self-care (01) ==
LOC: OPBI 07:03
PROVIDERS: PCP Nurse Practitioner Family; Referring Provider Nurse Practitioner Family; Visit Provider Nurse Practitioner Family
DX: Z12.31 Encounter for screening mammogram for malignant neoplasm of breast (principal); Z80.3 Family history of malignant neoplasm of breast
CPT/HCPCS: 77063; 77067

== ENCOUNTER 2024-02-16 10:32 | Outpatient (RCR) | payer MEDICARE, SELFPAY ==
--- NOTE | 2024-02-16 12:49 | HP.FCE ---
Task Lift Floor (Occasional 1-33% of Day): 20 Floor (Frequent 34-66% of Day): 10 Floor (Constant 67-100% of Day): 4.21 Floor PDL: Light Knee (Occasional 1-33% of Day): 20 Knee (Frequent 34-66% of Day): 10 Knee (Constant 67-100% of Day): 4.21 Knee PDL: Light Waist (Occasional 1-33% of Day): 20 Waist (Frequent 34-66% of Day): 10 Waist (Constant 67-100% of Day): 4.21 Waist PDL: Light Shoulder (Occasional 1-33% of Day): 15 Shoulder (Frequent 34-66% of Day): 7.5 Shoulder (Constant 67-100% of Day): 3.15 Shoulder PDL: Sedentary-Light Overhead (Occasional 1-33% of Day): 0 Overhead (Frequent 34-66% of Day): 0 Overhead (Constant 67-100% of Day): 0 Overhead PDL: No Ability Comments: pt with light lift for floor, knee as well as waist level. pt is sedentary- light for completion of shoulder lift. unable to perform overhead lift Work Activity/Posture Bending: Frequent Ability (34-66% of day) Squatting: Frequent Ability (34-66% of day) Kneeling: Occasional Ability (1-33% of day) Reaching out: Constant Ability (67-100% of day) Reaching up: Frequent Ability (34-66% of day) Sitting: Occasional Ability (1-33% of day) Walking: Occasional Ability (1-33% of day) Standing: Occasional Ability (1-33% of day) Comments: nature of arthritis limits pt ability to perform physical tasks Reference Reference: Duration Sedentary Sedentary Light Light Light Medium Medium Medium Heavy Very Heavy Heavy Occasional (0-33% of day) Frequent (34-66% of day) Constant (67-100% of day) 10 # Negligible Negligible 15 # 8 # Negligible 20 # 10# Negli. 35 # 18 # 7 # 50 # 25 # 10 # 75 # 100 # >100 # 38 # 50 # >50 # 15 # 20 # >20 # Patient Information Height: 5 ft Weight:: 140 kg Hand Dominance: R Medical History Medical History Including Restrictions: Thus 58 year old female with initial injury of falling off of ladder in 2014 while at work resulting in R wrist fx with fixation of metal plates which were taken out approx 2015 as well as carpal tunnel release. L wrist with internal fixation and carpal tunnel release 2014 with total of x7 surgeries. L shoulder impaired due to falling from ladder as well as L fracture of hip with conservative healing. Pt with surgery to back at end of 2021 due to chronic back pain. Pt had therapy after ladder fall incident for wrist fractures as well as L hip fx. does stretches for back pain every morning and every night and uses pain patch/ arthritis medication. pt has been on disability since initial injury in 2014. 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 Behavioral Behavioral: calm and cooperative social ADLS ADLS: Pt is I in self care can do own cooking. pt lives alone with dog. pt lives in apartment on main level. pt has tub shower no grab bars has a seat uses occasionally. per pt she will sit at side of tub and swing self in. high rise commode no bars. Has a mini pincher she cares for. Physical Examination Physical Examination: arrives walks back to therapy section no AD. forward hunched posture during mobility gaurded posturing of LUE during walk does not have LUE arm swing during walking resting HR 61 bpm 02 97% pain at rest 02/08 pt reports her resting HR as well as BP is typically low due to leaky heart valve ROM: LUE shoulder, elbow, forearm WFL wrist at 40(ext)/35(flex) UD at [address] 25 RUE shoulder elbow, forearm WFL wrist 45 (ext)/45 (flex) UD 20 RD 20 degrees LLE and RLE WFL Strength: LUE shoulder flexion 5.6# tricep 6.8# bicep 8# RUE shoulder flexion 8# tricep 10.1# bicep 11.2 LLE hip flexor 16.6# quad 15.3# hamstring 14.6# RLE hip flexor 15.3# quad 14.5# hamstring 14# Right Manufacturing Industrial Engineer Strength Average: 46.66 Right Manufacturing Industrial Engineer Strength Percentile: 63rd percentile Left Manufacturing Industrial Engineer Strength Average: 21.66 Left Manufacturing Industrial Engineer Strength Percentile: 48th percentile Right Lateral Pinch Average: 3.00 Right Lateral Pinch Percentile: <10th percentile Left Lateral Pinch Average: 2.33 Left Lateral Pinch Percentile: < 10th percentile Right Tripod Pinch Average: 5.33 Right Tripod Pinch Percentile: <10th percentile Left Tripod Pinch Average: 3.00 Left Tripod Pinch Percentile: <10th percentile Comments: difficulty keeping L hand grasp on tools falls out of hand after third trial of testing tripod pinch Sensation: occasionally typically when being used feels like needles can feel hot and cold Fine Motor: 9 hole peg test complete R hand: trial 1: 21 sec trial 2: 22 sec trial 3: 23 sec average of 22 pounds 50th percentile for gender and age L hand trial 1: 26 sec trial 2: 26 sec trial 3: 25 sec average of 25.6 pounds 50th percentile for gender and age Balance: standing forward reach score 8.5 indicating pt is at 2x greater risk for falls Non Material Handling Activities Bending: bending 3/3 trial bending at own pace 05/11 HR 79bpm and 02 96% bending as fast as possible 1010 HR 90 bpm 02 98% wide stance completes without external support positions L arm in protective position during task Squatting: squat 3/3 trial squat at own pace 10 HR 94 bpm and 02 92% squat as fast as possible 05/11 slight LOB self corrected HR 97 bpm 02 99% cramp at end stance wide no external support uses leg to push up pain in back 03/11 Kneeling: kneeling 3/3 trial kneeling at own pace 02/08 starts without external support then moves to use of support after LOB self corrected has to stop due to pain fatigue as well as cramp in LLE. HR 89bpm and 02 95% pain in back 03/11 Reaching out/up: reaching out: 3/3 trial 05/11 own pace LUE does not fully extend in gaurded position 05/11 fast LUE does not fully extend in gaurded position HR 72 bpm and 02 98% reaching up: 3/3 trial 05/11 at own pace LUE does not reach up all the day slightly bent begins to have more pain specific to shoulder rating at 7.5/10 10/10 fast however limited ROM at L shoulder unable to fully extend HR 78 bpm and 02 98% increased pain at shoulder with reaching Walking: walks from waiting room to therapy room per pt she can walk for approx 15 min before needing to sit for RB due to pain able to perform x3 laps around therapy gym and walk to and from OT section --- 1,102 feet HR 75 bpm 02 98% Standing: pt able to stand for completion of walking assessment as well as stairs for total of 20 min before sitting for RB Sitting: pt is able to sit during intake which was approx 30 min however does change position frequently due to discomfort pt states she can probably sit maximally for 20 min before need to get up and walk Climbing Stairs: pt lives in apartment however does have basement and does go down at least once a day pt is able to ascend and descend 10 stairs using hand rail for support reciprocal pattern ascending then sideways step too pattern holding onto rail to descend. Dynamic Occasional Lifting Capacity Floor Lift: lifts box (15#) + 5 lbs total of 20 pounds HR 72 bpm 02 97% difficulty graspping box due to decreased ROM at L wrist Knee Lift: lift box (15#) + 5 lbs total of 20 pounds HR 76 bpm 02 96% Waist Lift: lifts box (15#) + 5 lbs total of 20 pounds HR 72 bpm 97 02% increased pain in LUE 8/10 back pain 8/10 Shoulder Lift: lift box (15#) total of 15 pounds HR 67 bpm 02 96% Overhead Lift: unable 0 pounds pt unable to lift any resistance overhead with LUE due to shoulder pain and limited motion with repetative AROM Carrying: carry box intermediate across room approx 15 feet before needing therapist to take box from her unable to complete HR 83 bpm and 02 97% Comments: pt with difficulty grasping box due to L wrist resting posture in radial deviation pt L wrist and LUE pain increases with lifts
== END 2024-02-16 19:00 | disposition home or self-care (01) ==
LOC: OT 10:32
PROVIDERS: PCP Nurse Practitioner Family; Referring Provider Anesthesiology Pain Medicine; Visit Provider Anesthesiology Pain Medicine
DX: M54.9 Dorsalgia, unspecified (principal)
CPT/HCPCS: 97750

== ENCOUNTER → 2024-09-25 | Outpatient (CLI) | payer MEDICARE, SELFPAY ==
--- NOTE | 2024-09-25 09:40 | BI_ITS ---
PROCEDURE: SCRN MAMM (CAD)W/ANGELIA BILAT REASON FOR EXAM: F, Age 58 y/o, sisters with breast cancer. Aunt with breast cancer. Annual mammographic follow-up. TECHNIQUE: Bilateral screening digital breast tomosynthesis with 2D and 3D images. Computer aided detection. COMPARISON: Prior exam(s) dating back to September 23, 2023.. FINDINGS: The breasts are heterogeneously dense which may obscure small masses. Stable small benign-appearing bilateral axillary lymph nodes. No suspicious masses, areas of developing architectural distortion, or suspicious calcifications. BI/SCRN MAMM (CAD)W/ANGELIA BILAT IMPRESSION: BI-RADS 2: BENIGN. RECOMMEND ANNUAL MAMMOGRAPHIC SCREENING. Follow-up code: Routine Follow-up The patient will be notified of the results by letter. Reading Location: [id number]
== END | disposition home or self-care (01) ==
LOC: OPBI 09:39
PROVIDERS: PCP Nurse Practitioner Family; Referring Provider Nurse Practitioner Family; Visit Provider Nurse Practitioner Family
DX: Z12.31 Encounter for screening mammogram for malignant neoplasm of breast (principal)
CPT/HCPCS: 77063; 77067

== ENCOUNTER → 2024-11-01 | Outpatient (CLI) | payer MEDICARE, SELFPAY ==
--- NOTE | 2024-11-01 11:44 | BD_ITS ---
PROCEDURE: DEXA BONE DENSITY STUDY 11/01/2024 REASON FOR EXAM: F, age 59 y/o . Postmenopausal. TECHNIQUE: DXA scan of the lumbar spine and right hip, using make and model. REFERENCE LINKS: ISCD Adult Positions COMPARISON: Comparison is made with prior study a dated September 22, 2022. FINDINGS: BMD and T-SCORES Lumbar spine: 1.047 g/cm2, T-Score 0.6 L1 through L4 Change from prior: Improvement by 2.1% Right femoral neck: 0.583 g/cm2, T-Score -2.4 Femoral neck comparison data not recommended for monitoring change. Right total hip: 0.737 g/cm2, T-Score -1.7 Change from prior: Worsening by 4% Fracture Risk Calculation: FRAX (10-year Fracture Risk) Score: FRAX scores should never be reported in a patient with osteoporosis on DEXA or for any patient that is on bone medication. The patient doesmeet the pharmacological treatment recommendations for prevention of osteoporosis BD/Dexa Bone Density Study IMPRESSION: OSTEOPENIA. Recommend follow-up as clinically warranted. Reading Location: [place] [id number]
== END | disposition home or self-care (01) ==
PROVIDERS: PCP Nurse Practitioner Family; Referring Provider Nurse Practitioner Family; Visit Provider Nurse Practitioner Family
DX: Z13.820 Encounter for screening for osteoporosis (principal); Z78.0 Asymptomatic menopausal state
CPT/HCPCS: 77080